=== PATIENT | female | born 1965 | race African-American/Black ===

== ENCOUNTER → 2021-09-04 14:51 | Outpatient (CLI) | payer BC, SELFPAY ==
--- NOTE | ~2021-09-04 | US_ITS ---
This report was recreated 09/05/2021. Original report was signed by Boo Olmos M.D. on 09/04/2021 20:43 CDT. US thyroid INDICATION: Thyroid nodule TECHNIQUE: Real-time sonographic images of the thyroid gland were obtained. COMPARISON: No prior studies for comparison. FINDINGS: The right thyroid lobe measures 4.6 x 2.4 x 2.1 cm. The left thyroid lobe measures 5.6 x 2.3 x 2 cm. There is normal echotexture and echogenicity throughout the thyroid gland. There are multiple right thyroid nodules, largest dominant mass being solid, isoechoic, taller than wide, ill-defined margins without echogenic foci measuring 1.2 x 0.8 x 1.0 cm (TR 4). In the left lobe there are multiple thyroid masses, largest dominant mass measuring 2 x 1.7 x 1.6 cm which is solid, slightly hypoechoic, wider than tall, ill-defined margins and no significant echogenic foci (TR 4). Normal vascular flow is present. IMPRESSION: 1. Dominant left thyroid mass meets sonographic criteria for biopsy. Ultrasound-guided fine-needle aspiration is recommended. 2: Right thyroid mass is moderately suspicious, although does not meet criteria for biopsy. Follow-up ultrasound in 12 months recommended. Reviewed, dictated and finalized at location A. Dictated By: Boo Olmos MD 09/04/212013 Signed By: 09/05/21 1149 TONYA
== END ==
PROVIDERS: PCP Family Medicine; Visit Provider Family Medicine
DX: E04.1 Nontoxic single thyroid nodule (principal)
CPT/HCPCS: 76536

== ENCOUNTER 2021-10-23 00:35 | Day surgery (SDC) | payer BC, SELFPAY ==
[2021-10-10 14:26] VITALS: BMI 31.0
--- NOTE | 2021-10-22 13:29 | WPDANESEPPF ---
Anes - Initial Pre Proc Eval Procedure: Operation Date: 10/23/21 10:30 Proposed Procedures p Screening Colonoscopy - Abraham Pena MD Date/Time: 10/22/21 13:29 Surgeon: Abraham Pena MD Pre Op Diagnosis: neoplasm screening Patient Data Age: 55 Gender: F Height: 1.63 m Weight: 82 kg Allergies Allergy/AdvReac Type Severity Reaction Status Date / Time No Known Allergies Allergy Verified 10/23/21 09:36 Home Medications Medication Instructions Recorded Confirmed Type metoprolol tartrate 50 1 tablet PO DAILY #30 tabs 08/30/21 10/23/21 Rx mg-hydrochlorothiazide 25 mg tablet sertraline 50 mg tablet 50 mg PO DAILY 08/30/21 10/23/21 History amlodipine 10 mg tablet (Norvasc) 10 mg PO DAILY #90 tabs 09/05/21 10/23/21 Rx clonidine HCl 0.1 mg tablet See Rx Instructions .Route 09/05/21 10/23/21 Rx .COMPLEX #270 tabs Patient hx anesthesia problems: none Family hx anesthesia problems: none Results Review: All pre-operative results and documents have been reviewed as part of the pre-operative evaluation. [facility], LAT[facility] Past Medical History Medical History (Updated 09/10/21 @ 12:41 by Ana Mccoy MD) Benign hypertension Depression Thyroid nodule Family History Family History (Updated 08/30/21 @ 14:39 by Marybeth Fischer) Mother Lung cancer Diabetes mellitus Hypertension Heart disease Sibling Asthma Diabetes mellitus Hypertension Thyroid disorder Social History Social History (Updated 08/30/21 @ 14:37 by Marybeth Fischer) Social History: Single Years smoked: 15 Smoking status: Current every day smoker Tobacco type: cigarettes Alcohol intake: current Drinks per week: 5 Substance use: never Substance use type: does not use Living arrangements: with family Additional living arrangements comments: Pt daughter lives with her. Gender identity (if verbalized by the patient): Female Sexual Orientation (if Verbalized by the Patient): Straight or Heterosexual Anes - Eval Final PreProcedure Day of Procedure 10/22/21 13:29 Patient weight: obese Heart: regular rate and rhythm Lungs: clear to auscultation Airway: Mallampati scale class II Neurological: alert and oriented Last oral intake: >/= 8 hours ASA classification: III Emergent: no Anesthetic plan: proceed Anesthesia type and monitoring: general GIVS and standard monitoring Results Review: All pre-operative results and documents have been reviewed as part of the pre-operative evaluation. Informed Consent: The patient's anesthetic plan and its attendant risks and benefits were discussed with the patient/family/POA. Questions were solicited and answers provided to the satisfaction of the patient/family/POA.
[2021-10-23 09:38] VITALS: BP 166/90; PULSE 84; RESP 17; TEMP 36.2; O2SAT 99; BMI 37.0
[2021-10-23] MEDS: LACTATED RINGERS 1,000 ML 150 ML IV CONT (09:48)
--- NOTE | 2021-10-23 09:49 | SUR.PREOP ---
Patient is post menopausal, no need for a urine test.
--- NOTE | 2021-10-23 09:58 | PM.HPGS ---
History of Present Illness History of Present Illness Consent: Risks, benefits, and alternatives have been discussed and questions answered. Patient agrees to proceed with procedure. Chief complaint: neoplasm screening Narrative: Doreen Bustos is a 55 year old female here for first screening colonoscopy Review of Systems Constitutional: Constitutional: Denies headache(s) and Denies weakness Eyes: Eyes: Denies blurry vision ENT: Reports Normal hearing present, Denies headache(s) and Denies neck pain Cardiovascular: Cardiovascular: Denies chest pain and Denies dyspnea Respiratory: Respiratory: Denies dyspnea Gastrointestinal: Gastrointestinal: Reports no additional gastrointestinal complaints Genitourinary: Genitourinary: Denies dysuria Musculoskeletal: Musculoskeletal: Denies neck pain Integumentary/Breasts: Skin/Breast: Denies dry skin Neurologic: Reports Normal hearing present, Denies headache(s) and Denies weakness Psychiatric: Psychiatric: Denies anxiety Endocrine: Endocrine: Denies change in body appearance Hematologic/Lymphatic: Hematologic/Lymphatic: Denies easy bleeding Allergic/Immunologic: Allergic/Immunologic: Denies urticaria PMFSH Past Medical History Medical History (Updated 09/10/21 @ 12:41 by Ana Mccoy MD) Benign hypertension Depression Thyroid nodule Family History Family History (Updated 08/30/21 @ 14:39 by Marybeth Fischer) Mother Lung cancer Diabetes mellitus Hypertension Heart disease Sibling Asthma Diabetes mellitus Hypertension Thyroid disorder Social History Social History (Updated 08/30/21 @ 14:37 by Marybeth Fischer) Social History: Single Years smoked: 15 Smoking status: Current every day smoker Tobacco type: cigarettes Alcohol intake: current Drinks per week: 5 Substance use: never Substance use type: does not use Living arrangements: with family Additional living arrangements comments: Pt daughter lives with her. Gender identity (if verbalized by the patient): Female Sexual Orientation (if Verbalized by the Patient): Straight or Heterosexual Meds Home Medications and Allergies Home Medications Medication Instructions Recorded Confirmed Type metoprolol tartrate 50 1 tablet PO DAILY #30 tabs 08/30/21 10/23/21 Rx mg-hydrochlorothiazide 25 mg tablet sertraline 50 mg tablet 50 mg PO DAILY 08/30/21 10/23/21 History amlodipine 10 mg tablet (Norvasc) 10 mg PO DAILY #90 tabs 09/05/21 10/23/21 Rx clonidine HCl 0.1 mg tablet See Rx Instructions .Route 09/05/21 10/23/21 Rx .COMPLEX #270 tabs Allergies Allergy/AdvReac Type Severity Reaction Status Date / Time No Known Allergies Allergy Verified 10/23/21 09:36 Vital Signs Vital Signs - 24 hr 10/23/21 09:38 Temperature 97.1 F L Pulse Rate 84 Respiratory Rate 17 Blood Pressure 166/90 H Pulse Oximetry 99 Oxygen Delivery Room Air Exam Const: General: comfortable and no acute distress HENMT: General nose exam: Normal nares present Eyes: General: appearance normal, both eyes and all related structures Neck: Neck: no JVD Resp: Auscultation: clear to auscultation bilaterally Cardio: Rate: regular rate Rhythm: regular rhythm GI: Inspection: non-distended GI Palp: Yes Soft to palpation Skin: General skin exam: normal color Neuro: General: gait normal Speech: normal speech Extrem: General: normal to inspection Psych: Mental Status: mental status grossly normal Assessment and Plan Assessment and plan (1) Colon cancer screening: Code(s): Z12.11 - Encounter for screening for malignant neoplasm of colon Status: Acute Assessment and Plan: colonoscopy
[2021-10-23 10:13] VITALS: BP 120/73; PULSE 81; RESP 28; O2SAT 93
[2021-10-23 10:23] VITALS: BP 147/85; PULSE 86; RESP 21; O2SAT 98
[2021-10-23 10:33] VITALS: BP 137/86; PULSE 72; RESP 21; O2SAT 99
== END 2021-10-23 10:44 | disposition home or self-care (01) ==
PROVIDERS: PCP Family Medicine; Visit Provider Internal Medicine Gastroenterology
PROC: 0DJD8ZZ Inspection of Lower Intestinal Tract, Via Natural or Artificial Opening Endoscopic (ICD-10-PCS; CPT 45378; principal; 2021-10-23 10:30)
DX: Z12.11 Encounter for screening for malignant neoplasm of colon (principal); K64.8 Other hemorrhoids; I10 Essential (primary) hypertension; F32.A Depression, unspecified; E04.1 Nontoxic single thyroid nodule; F17.210 Nicotine dependence, cigarettes, uncomplicated; E66.9 Obesity, unspecified; Z68.37 Body mass index [BMI] 37.0-37.9, adult
CPT/HCPCS: 45378; J2704; J7120

== ENCOUNTER 2021-11-07 12:57 | Outpatient (CLI) | payer BC, SELFPAY ==
--- NOTE | ~2021-11-07 | US_ITS ---
EXAMINATION: US FNA w image guidance DATE: 11/07/2021 14:33 INDICATION: Nontoxic multinodular goiter TECHNIQUE: A time-out was performed to verify the patient's name, date of , and procedure to be performed . The procedure and its benefits and risks were discussed with the patient. Risks specifically discus sed included bleeding and infection. The patient understood the risks and agreed to proceed. The neck was prepped and draped in the usual sterile manner. 4 mL 1% lidocaine was used for local anesthesia . 6 passes were made with a 25G needle into the lesion. Appropriate needle location was documented with continuous sonographic guidance. A sterile bandage was applied. There were no immediate compli cations. FINDINGS: Grayscale ultrasound images demonstrate biopsy needles advanced into the 2 cm solid isoechoic TI RADS 4 nodule at the inferior left thyroid. IMPRESSION: 1. Successful ultrasound-guided fine needle aspiration of the 2 cm TI RADS 4 left thyroid nodule of concern. Reviewed, dictated and finalized at location A. IMPRESSION: 1. Successful ultrasound-guided fine needle aspiration of the 2 cm TI RADS 4 l eft thyroid nodule of concern.
== END 2021-11-07 12:58 | disposition home or self-care (01) ==
LOC: ANHIMG 12:59
PROVIDERS: PCP Family Medicine; Visit Provider Family Medicine
DX: E04.2 Nontoxic multinodular goiter (principal); E04.1 Nontoxic single thyroid nodule
CPT/HCPCS: 10005; 88173; 88305

== ENCOUNTER 2022-04-01 17:11 | Observation (INO) | payer BC, SELFPAY ==
[2022-04-01] VITALS (14 sets, daily range): BP systolic 141–217; BP diastolic 91–110; PULSE 88–113; RESP 20; TEMP 36.6–36.7; O2SAT 96–100; BMI 34.6
--- NOTE | ~2022-04-01 | CT_ITS ---
EXAMINATION: CT abdomen pelvis w con DATE: 04/01/2022 19:05 INDICATION: Abdominal pain TECHNIQUE: Computed tomography (CT) of the abdomen and pelvis was performed with 100 mL Omnipaque-350 intravenous contrast. Automated exposure control and iterative reconstruction technique were employe d. The dose-length product was 709.10 mGy-cm. COMPARISON: None FINDINGS: Mild discoid atelectasis in the lingula and right middle lobe. Heart size is normal. No pericardial o r pleural effusion. Small sliding-type hiatal hernia. Liver, gallbladder, spleen, pancreas and right adrenal gland are normal. 2.9 x 2.0 cm left adrenal mass. Bilateral renal cysts the larger on the lef t measuring 3.4 cm. Bilateral nonobstructing small renal stones measuring 2 mm at the upper pole of t he right kidney and 4 mm in upper pole calyx of the left kidney. No hydronephrosis. There are few sca ttered colonic diverticula without adjacent inflammatory stranding to suggest diverticulitis. Small b owel and appendix are normal. Bladder, anteverted uterus and bilateral adnexa are unremarkable. There are several phleboliths along the bilateral gonadal veins. No free intraperitoneal gas or fluid. No pathologically enlarged abdominal or pelvic lymphadenopathy. Mild thoracolumbar levocurvature with mo derate spondylosis. IMPRESSION: 1. Normal gallbladder and appendix. No acute intra-abdominal/pelvic process. 2. Bilateral nonobstructing nephrolithiasis. 3. 2.9 cm left adrenal mass. While statistically most likely to represent an adenoma, given size woul d recommend further evaluation with pre and postcontrast MRI or CT. 4. Small sliding-type hiatal hernia. Reviewed, dictated and finalized at location A. STORAGE SUPERINTENDENT IMPRESSION: 1. Normal gallbladder and appendix. No acute intra-abdominal/pelvic process. 2. Bilateral nonobstructing nephrolithiasis. 3. 2.9 cm left adrenal mass. While statistically most likely to represent an ad enoma, given size would recommend further evaluation with pre and postcontrast MRI or CT. 4. Small sliding-type hiatal hernia.
--- NOTE | ~2022-04-01 | US_ITS ---
Limited Abdominal Sonogram: Real-time sonographic imaging of the right upper quadrant was performed. Clinical History: Nausea and vomiting Findings: The liver appears normal with no evidence of mass lesion or bile duct dilatation. Main por mario vein demonstrates normal direction of flow. The gallbladder is well distended, and appears normal with no evidence of gallstone or wall thickening. The common bile duct measures 3 mm. The visualize d pancreas, aorta, and IVC are unremarkable. Impression: No significant abnormality seen. Reviewed, dictated and finalized at location M. LESS TELEGRAPHER Impression: No significant abnormality seen.
--- NOTE | ~2022-04-01 | CT_ITS ---
EXAMINATION: CT abdomen wo/w con INDICATION: Adrenal mass TECHNIQUE: Computed tomographic images of the abdomen were obtained prior to then following the admin istration of 100 cc of Omnipaque 350 intravenous contrast. The dose-length product (DLP) was 1461.23 mGy-cm. Automated exposure control and iterative reconstruction technique were employed. COMPARISON: 04/01/2022 FINDINGS: Minimal dependent atelectasis is present in the lung bases. The heart size is normal. There is a small sliding hiatal hernia. The liver, spleen, pancreas, gallbladder, and right adrenal gland are normal there is a 2.9 cm mass of the left adrenal gland which demonstrates 80% absolute washout a nd 62% relative washout. Cysts of the kidneys measure up to 3.3 cm on the left. There are 2 mm nonobs tructing stones of the kidneys. No pathologically enlarged abdominal lymph nodes are identified. No f ree intraperitoneal gas or evidence of bowel obstruction. There is calcified atherosclerosis of the a [place] and many of the other arteries. IMPRESSION: 1. Left adrenal mass, consistent with an adenoma. Reviewed, dictated and finalized at location B. NG FINISHER
[2022-04-01 17:43] LABS: Basophils Percent Auto 0.2 % (0.2-1.2); Hematocrit 45.5 % (37.0-47.0); Hemoglobin 15.2 g/dL (12.0-15.0); Immature Granulocyte Absolute 0.05 K/mm3 (0.00-0.031); Immature Granulocyte Percent A 0.4 % (0-0.5); Lymphocytes Absolute Auto 2.03 K/mm3 (0.9-3.2); Lymphocytes Percent Auto 14.4 % (18.3-44.2); Mean Corpuscular HGB Conc 33.4 g/dl (32-36); Mean Corpuscular Volume 83.8 fl (80-100); Mean Platelet Volume 10.9 fl (7.4-10.4); Monocytes Absolute Auto 0.6 K/mm3 (0.1-0.6); Monocytes Percent Auto 4.5 % (2.6-8.5); Neutrophils Absolute Auto 11.4 K/mm3 (1.3-6.7); Neutrophils Percent Auto 80.5 % (45.5-73.1); Platelet Count Result 290 k/mm3 (150-375); Red Blood Count 5.43 M/mm3 (4.2-5.4); Red Cell Distribution Width 14.6 % (11.5-14.5); White Blood Count 14.1 K/mm3 (4.5-10.0)
[2022-04-01 17:56] LABS: Alanine Aminotransferase 27 U/L (6-35); Albumin Level 5.3 g/dL (3.5-5.1); Alkaline Phosphatase 94 U/L (38-126); Anion Gap 13 mmol/L (8-16); Aspartate Amino Transferase 28 U/L (14-36); Bilirubin,Total 0.6 mg/dL (0.2-1.3); Blood Urea Nitrogen 18 mg/dL (7-17); Calcium 10.5 mg/dL (8.4-10.2); Carbon Dioxide 24 mmol/L (22-30); Chloride 102 mmol/L (98-107); Estimated CRCL calculation 71 ml/min; Estimated Glomerular Filt Rate > 60; Glucose 185 mg/dL (65-110); Lipase 49 U/L (23-300); Potassium 2.8 mmol/L (3.4-5.0); Sodium 139 mmol/L (137-145)
--- NOTE | 2022-04-01 18:16 | ED.GENADULT ---
HPI - General Adult General Chief complaint: Nausea/Vomiting/Diarrhea Stated complaint: nausea, vomiting, can't keep bp meds down Time Seen by Provider: 04/01/22 18:12 Source: RN notes reviewed History of Present Illness HPI narrative: Patient presents to emergency department from home for nausea and vomiting. Patient states that she has been having profuse nausea and vomiting since last night. States she had eaten some chicken yesterday and felt like that was the likely culprit of her nausea vomiting states that since that time she is unable to keep anything down she states that she has been having upper abdominal pain associate with vomiting she denies any fevers or chills chest pain shortness of breath diarrhea or any other symptoms. States she has a history of hypertension and has been unable to take any of her medication Related Data Allergies Allergy/AdvReac Type Severity Reaction Status Date / Time No Known Allergies Allergy Verified 04/01/22 18:26 Review of Systems Review of Systems: Gen.: Denies fevers or chills ENT: Denies congestion Respiratory: Denies shortness of breath or cough CV: Denies chest pain or palpitations GI: See HPI Musculoskeletal: Denies back pain or muscle pain Neuro: Denies numbness, tingling, weakness or focal weakness Skin: Denies rash Except as documented, all other systems reviewed and negative [facility] Past Medical History Medical History Benign hypertension Depression Thyroid nodule Family History Family History Mother Lung cancer Diabetes mellitus Hypertension Heart disease Sibling Asthma Diabetes mellitus Hypertension Thyroid disorder Social History Social History Social History: Single Smoking packs per day: 0.5 Smoking cigarettes per day: 10.0 Years smoked: 15 Smoking pack-years: 7.50 Smoking status: Current every day smoker Tobacco type: cigarettes Alcohol intake: current Alcohol use details: Occasionally Substance use: never Substance use type: does not use Living arrangements: with family Additional living arrangements comments: Pt daughter lives with her. Occupation/Education: occupation Gender identity (if verbalized by the patient): Female Sexual Orientation (if Verbalized by the Patient): Straight or Heterosexual Exam Narrative: APPEARANCE: No acute distress, nontoxic, resting in bed EYES: EOMI HEENT: Normocephalic, atraumatic, OMM RESPIRATORY: No respiratory distress Clear to auscultation bilaterally with no rhonchi wheezing or rales. CARDIOVASCULAR: Regular rate and rhythm without murmurs rubs or gallops. ABDOMINAL: Soft, nondistended, tender palpation epigastric, right upper quadrant and left upper quadrant no tenderness in the right lower quadrant left lower quadrant no rebound or guarding MUSCULOSKELETAl: Moves all extremities. No clubbing, cyanosis or edema. NEURO: Awake and alert. Following commands, speech normal, no focal deficits SKIN:: Warm, dry. No rashes lesions or abrasions PSYCHIATRIC: Normal affect/mood, Course Course Emergency Course: Discussed with Dr. Badillo for hospitalist service agrees with admission discussed adrenal mass and need for further imaging once nausea and vomiting improved Discussed with patient and family results of workup and diagnosis. Discussed need for admission. Patient and family understand and agree to current treatment plan Vital Signs Vital signs: Vital Signs Temperature 98.1 F 04/01/22 17:21 Pulse Rate 111 H 04/01/22 17:21 Respiratory Rate 20 04/01/22 17:21 Blood Pressure 183/91 H 04/01/22 17:21 Pulse Oximetry 100 04/01/22 17:21 Temperature 98.1 F 04/01/22 17:21 Pulse Rate 111 H 04/01/22 17:21 Respiratory Rate 20 04/01/22 17:21 Blood Pressure 183/91 H 04/01/22 17:21 Pulse Oximetry
[2022-04-01 18:30] LABS: Magnesium 2.1 mg/dL (1.6-2.3)
[2022-04-01] MEDS: SODIUM CHLORIDE 0.9% IV 1,000 ML 999 ML IV CONT (18:41)
[2022-04-01] MEDS: ONDANSETRON INJ 4 MG/2 ML VIAL IV PUSH (18:45)
[2022-04-01] MEDS: FAMOTIDINE 20 MG/2 ML VIAL IV PUSH (18:45)
[2022-04-01] MEDS: POTASSIUM CHLORIDE INJ 40 MEQ in SODIUM CHLORIDE 0.9% IV 500 ML 130 MEQ IVPB (19:10)
--- NOTE | 2022-04-01 19:10 | ECG_ITS ---
Measurements Intervals Velma Rate: 84 P: 69 UT: 135 QRS: 9 QRSD: 89 T: 177 QT: 381 QTc: 450 Interpretive Statements SINUS RHYTHM WITH MARKED SINUS ARRHYTHMIA RIGHT ATRIAL ENLARGEMENT [0.3mV P-WAVE] LEFT ATRIAL ENLARGEMENT [-0.15mV P-WAVE IN V1/V2] LEFT VENTRICULAR HYPERTROPHY AND ST-T CHANGE [VOLTAGE CRITERIA PLUS ST/T ABNORMALITY] NO PREVIOUS ECG AVAILABLE FOR COMPARISON Electronically Signed On 04-02-2022 14:48:45 MENSWEAR SALESPERSON by Virgilio Madrid M.D.
[2022-04-01 19:15] LABS: Influenza A QL RT-PCR Negative (Negative); Influenza B QL RT-PCR Negative (Negative); RSV RNA, RT-PCR Negative (Negative); SARS-CoV-2 RNA PCR Negative
[2022-04-01 19:36] LABS: Appearance Urine Slightly Cloudy (Clear); Bilirubin Urine Negative (Negative); Blood Urine Trace-lysed (Negative); Color Urine Yellow (Yellow); Glucose Urine UA Negative (Negative); Ketones Urine Negative (Negative); Leukocyte Esterase Ur Negative LEU/UL (Negative); Nitrate Urine Negative (Negative); Protein Urine 2+ mg/dL (Negative); Urobilinogen Urine 0.2 mg/dL (<2.0)
[2022-04-01 19:38] LABS: Bacteria Urine Trace /hpf; Mucus Urine Rare /lpf; RBC Urine 0-2 /hpf (0-2); Squamous Epithelial Cell Urine Occasional /hpf (Few); WBC Urine 0-3 /hpf
[2022-04-01 19:39] LABS: Add Urine Microscopic? YES
--- NOTE | 2022-04-01 19:59 | PM.IMHP ---
H&P: HPI History of Present Illness Date/Time: 04/01/22 19:59 Chief Complaint: Nausea and vomiting Narrative: This is a 56-year-old female with past medical history significant for hypertension. Patient presents to the emergency room after having several episodes of nausea and vomiting she attributes this to having fat rich food the night before, patient has not been able to keep anything down, has not been able to take her medications for her hypertension. Decided to come to the emergency room denies any cough, sputum production, fevers, rigors, no muscle aches or pains. Preliminary [place] [address], a potassium of 2.8, patient tested negative for influenza A, influenza B, RSV and COVID 19. She was noted to have a systolic blood pressure in the 100 and 80s to 100 and 90s and diastolic in the 90s to 100s, patient received hydralazine in the emergency room. Decision has been made to place the patient in observation for further evaluation management and treatment. A CT of abdomen and pelvis was reported as: FINDINGS: Mild discoid atelectasis in the lingula and right middle lobe. Heart size is normal. No pericardial or pleural effusion. Small sliding-type hiatal hernia. Liver, gallbladder, spleen, pancreas and right adrenal gland are normal. 2.9 x 2.0 cm left adrenal mass. Bilateral renal cysts the larger on the left measuring 3.4 cm. Bilateral nonobstructing small renal stones measuring 2 mm at the upper pole of the right kidney and 4 mm in upper pole calyx of the left kidney. No hydronephrosis. There are few scattered colonic diverticula without adjacent inflammatory stranding to suggest diverticulitis. Small bowel and appendix are normal. Bladder, anteverted uterus and bilateral adnexa are unremarkable. There are several phleboliths along the bilateral gonadal veins. No free intraperitoneal gas or fluid. No pathologically enlarged abdominal or pelvic lymphadenopathy. Mild thoracolumbar levocurvature with moderate spondylosis. IMPRESSION: 1. Normal gallbladder and appendix. No acute intra-abdominal/pelvic process. 2. Bilateral nonobstructing nephrolithiasis. 3. 2.9 cm left adrenal mass. While statistically most likely to represent an adenoma, given size would recommend further evaluation with pre and postcontrast MRI or CT. 4. Small sliding-type hiatal hernia. Review of Systems Review of Systems: Nausea, vomiting. Constitutional: Constitutional: Denies chills, Denies fever(s), Denies malaise, Denies night sweats and Denies weakness Eyes: Eyes: Denies change in vision ENT: Denies dysphagia and Denies odynophagia Cardiovascular: Cardiovascular: Denies chest pain, Denies leg edema, Denies lightheadedness, Denies radiating jaw, neck or arm pain, Denies palpitations and Denies dyspnea on exertion Respiratory: Respiratory: Denies chest congestion, Denies cough, Denies excessive phlegm production, Denies pain on inspiration, Denies dyspnea and Denies wheezing Gastrointestinal: Gastrointestinal: Denies abdominal pain, Denies dyspepsia, Denies heartburn, Reports nausea and Reports vomiting Genitourinary: Genitourinary: Denies dysuria Musculoskeletal: Musculoskeletal: Denies back pain and Denies myalgias Integumentary/Breasts: Skin/Breast: Denies rash Neurologic: Denies vertigo, Denies dizziness, Denies syncope, Denies focal weakness and Denies Sensory deficit (Neuro) Psychiatric: Psychiatric: Reports no additional psychiatric complaints and Reports as per HPI Endocrine: Endocrine: Denies cold intolerance, Denies flushing, Denies heat intolerance, Denies polyphagia, Denies polydipsia and Denies palpitations Hematologic/Lymphatic: Hematologic/Lymphatic: Reports no additional hematologic/lymphatic complaints and Reports as per HPI Allergic/Immunologic: Allergic/Immunologic: Reports no additional allergic/immunologic complaints and Reports as per HPI [facility] Past Medical History Medical History (Reviewed 04/01/22
[2022-04-01] MEDS: hydrALAZINE HCL 20 MG/ML VIAL 10 MG IV PUSH (20:23)
[2022-04-01] MEDS: SODIUM CHLORIDE 0.9% IV 1,000 ML 125 ML IV CONT (20:23)
--- NOTE | 2022-04-01 21:47 | PC.NURSE ---
Patient care report called to CASSIUS Iqbal. All question answered at this time.
--- NOTE | 2022-04-01 22:14 | ADMGEN ---
This patient, Doreen Bustos, was admitted to IMU Room 212-01 at 2200 04/01/2022. Patient/family oriented to hospital policies and general routines including ID bracelet, bed and alarms, visiting hours, pain management, procedures, bathroom and other care routines, personal items, smoking policy, room service/diet, and visiting hours. Information on how to activate the Rapid Response Team has been discussed. Patient/Family are encouraged to report perceived risks to care and to ask questions if they do not understand what they are told or what they should do.
[2022-04-02] VITALS (17 sets, daily range): BP systolic 154–195; BP diastolic 81–108; PULSE 66–113; RESP 20; TEMP 35.8–37; O2SAT 99–100
[2022-04-02] MEDS: BELLADONNA ALK/PHENOB ELIX 10 ML, MAG HYDROX/ALUMINUM HYD/SIMETH 30 ML, LIDOCAINE HCL 2... PO (03:48)
[2022-04-02] MEDS: hydrALAZINE HCL 20 MG/ML VIAL 10 MG IV PUSH ×2 (03:49→16:35)
[2022-04-02 05:16] LABS: Basophils Percent Auto 0.2 % (0.2-1.2); Hematocrit 42.6 % (37.0-47.0); Immature Granulocyte Absolute 0.08 K/mm3 (0.00-0.031); Immature Granulocyte Percent A 0.6 % (0-0.5); Lymphocytes Absolute Auto 2.03 K/mm3 (0.9-3.2); Lymphocytes Percent Auto 14.8 % (18.3-44.2); Mean Corpuscular HGB Conc 32.9 g/dl (32-36); Mean Corpuscular Hemoglobin 28.3 pg (26-34); Mean Corpuscular Volume 86.1 fl (80-100); Mean Platelet Volume 10.8 fl (7.4-10.4); Monocytes Absolute Auto 0.9 K/mm3 (0.1-0.6); Monocytes Percent Auto 6.6 % (2.6-8.5); Neutrophils Absolute Auto 10.6 K/mm3 (1.3-6.7); Neutrophils Percent Auto 77.8 % (45.5-73.1); Platelet Count Result 255 k/mm3 (150-375); Red Blood Count 4.95 M/mm3 (4.2-5.4); Red Cell Distribution Width 14.7 % (11.5-14.5); White Blood Count 13.7 K/mm3 (4.5-10.0)
[2022-04-02 05:26] LABS: Alanine Aminotransferase 24 U/L (6-35); Albumin Level 4.5 g/dL (3.5-5.1); Alkaline Phosphatase 77 U/L (38-126); Anion Gap 7 mmol/L (8-16); Aspartate Amino Transferase 24 U/L (14-36); Bilirubin,Total 0.5 mg/dL (0.2-1.3); Blood Urea Nitrogen 14 mg/dL (7-17); Calcium 9.1 mg/dL (8.4-10.2); Carbon Dioxide 25 mmol/L (22-30); Chloride 105 mmol/L (98-107); Estimated CRCL calculation 98 ml/min; Estimated Glomerular Filt Rate > 60; Glucose 142 mg/dL (65-110); Potassium 3.3 mmol/L (3.4-5.0); Sodium 137 mmol/L (137-145)
[2022-04-02] MEDS: cloNIDine HCL 0.1 MG TABLET PO ×3 (05:56→20:45)
[2022-04-02] MEDS: SODIUM CHLORIDE 0.9% IV 1,000 ML 125 ML IV CONT ×2 (07:58→16:06)
[2022-04-02] MEDS: SUCRALFATE SUSP 100 MG/ML 10 ML UDC 1000 MG PO ×4 (08:06→20:45)
[2022-04-02] MEDS: PANTOPRAZOLE SODIUM IV 40 MG VIAL IV PUSH ×2 (08:07→20:44)
[2022-04-02] MEDS: SERTRALINE HCL 50 MG TABLET PO (08:07)
[2022-04-02] MEDS: FAMOTIDINE 20 MG/2 ML VIAL IV PUSH ×2 (08:07→20:45)
[2022-04-02] MEDS: METOPROLOL TARTRATE 50 MG TAB PO (08:07)
[2022-04-02] MEDS: amLODIPine BESYLATE 5 MG TABLET 10 MG PO (08:07)
[2022-04-02] MEDS: hydroCHLOROthiazide 25 MG TABLET PO (08:07)
[2022-04-02] MEDS: ENOXAPARIN 40 MG/0.4 ML SYRINGE SUB-Q (08:08)
[2022-04-02] MEDS: POTASSIUM CHLORIDE 20 MEQ PACKET (FOR LIQUID) 40 MEQ PO (10:27)
[2022-04-02] MEDS: ONDANSETRON INJ 4 MG/2 ML VIAL IV PUSH (17:13)
--- NOTE | 2022-04-02 18:32 | PM.IMPN ---
Progress Note: A&P Assessment and Plan (1) Nausea and vomiting: Code(s): R11.2 - Nausea with vomiting, unspecified Status: Acute Assessment and Plan: Patient presents with nausea and vomiting. She has a history of nausea and vomiting and suspect possibly she has cyclic vomiting. This could also be related to her marijuana use. This was discussed with her. LFTs and lipase were normal. CT of the abdomen pelvis showed normal gallbladder and appendix. No acute intra-abdominal or pelvic process. Right upper quadrant ultrasound showed no significant abnormalities. She was started IV fluids. She feels better. Stop by 3 or 4 times during the day. Patient is worried about being discharged. She still has some nausea and occasional vomiting but overall feels better. She ultimately decides to stay. Continue Zofran p.r.n. for nausea. Will check urine drug screen. (2) Acute hypokalemia: Code(s): E87.6 - Hypokalemia Status: Acute Assessment and Plan: Patient admission with potassium 2.8. Repeat potassium 3.3. This was replaced orally. Magnesium was 2.1 on admission. Check potassium in the morning. Probably related to her nausea and vomiting but she is on hydrochlorothiazide which could contribute to this. Continue to replace as needed. Will check TSH and cortisol level. (3) Tobacco abuse: Code(s): Z72.0 - Tobacco use Status: Acute Assessment and Plan: Patient was educated about the benefits of smoking cessation as well as refraining from marijuana use. (4) Hypertension: Code(s): I10 - Essential (primary) hypertension Status: Acute Assessment and Plan: Blood pressure markedly elevated to 217/104. [place] related to the fact that she has been having nausea and vomiting and unable to keep her home medications down. She has been resumed on her amlodipine, clonidine, metoprolol and hydrochlorothiazide. Blood pressure is better controlled. Will monitor for now but may need to advance her medications if blood pressure remains elevated. (5) Adrenal mass: Code(s): E27.8 - Other specified disorders of adrenal gland Status: Acute Assessment and Plan: Incidental finding of a 2.9 cm left adrenal mass. Most likely adenoma but CT w/o and w/ recommended. Will proceed with the biochemical workup including Dexa suppression tonight. Check CT since remaining hospitalized. Subjective Date/time seen: 04/02/22 18:32 Interval history: 56-year-old female with hypertension tobacco abuse here for nausea vomiting found to have hypokalemia. Patient has history these episodes of nausea and vomiting that she states ?I can not control?. She has not had a GI workup for this. She feels tired today. She has been told may be diet related. She does smoke marijuana on occasion. Exam Narrative: AF 96.4 176/81 79 20 99%ra Gen - NARD Chest - CTA bilaterally, nml RR CV - RRR S1/S2. Telemetry showing no significant dysrhythmias Abd - Soft, NT/ND, Positive BS Ext - No pedal edema Neuro - Alert and oriented. Nonfocal exam. Psych - Nml mood and affect Skin - Warm and dry Objective Data Vital Signs Vital Signs: Vital Signs - 24 hr 04/01/22 20:58 04/01/22 21:00 04/01/22 21:02 Temperature Pulse Rate 98 98 97 Respiratory Rate Blood Pressure 194/101 H Pulse Oximetry 100 100 100 Oxygen Delivery 04/01/22 21:03 04/01/22 21:15 04/01/22 21:16 Temperature Pulse Rate 88 91 93 Respiratory Rate Blood Pressure 202/93 H Pulse Oximetry 99 100 96 Oxygen Delivery 04/01/22 21:30 04/01/22 21:32 04/01/22 21:45 Temperature Pulse Rate 90 98 99 Respiratory Rate Blood Pressure 217/104 H Pulse Oximetry 100 100 99 Oxygen Delivery 04/01/22 21:46 04/01/22 22:05 04/01/22 22:00 Temperature Pulse Rate 107 H 104 H Respiratory Rate Blood Pressure 215/105 H Pulse Oximetry 97 97 Oxygen Delivery Room Air
[2022-04-03] MEDS: SODIUM CHLORIDE 0.9% IV 1,000 ML 125 ML IV CONT (00:45)
[2022-04-03 04:10] VITALS: BP 128/73; RESP 20; TEMP 36.6; O2SAT 100
[2022-04-03] MEDS: cloNIDine HCL 0.1 MG TABLET PO (06:11)
[2022-04-03] MEDS: SUCRALFATE SUSP 100 MG/ML 10 ML UDC 1000 MG PO (06:11)
--- NOTE | 2022-04-03 07:35 | PC.NURSE ---
Pt to CT via wheelchair. IV fluids paused for testing.
[2022-04-03 08:00] VITALS: BP 132/76; PULSE 57; RESP 16; TEMP 36.4; O2SAT 97
--- NOTE | 2022-04-03 08:29 | PC.NURSE ---
Addendum entered by Ayesha Calhoun RN 04/03/22 08:30: This occurred at 0815 Original Note: Pt returned from CT. IV fluids resumed
--- NOTE | 2022-04-03 08:31 | PM.DS ---
DS: Admitting Diagnosis Discharge Date 04/03/2022 Admitting Diagnosis Cyclic vomiting syndrome DS: Discharge Diagnosis Discharge Diagnosis (1) Nausea and vomiting: Code(s): R11.2 - Nausea with vomiting, unspecified Status: Acute Assessment and Plan: Patient presents with nausea and vomiting. She has a history of nausea and vomiting and suspect possibly she has cyclic vomiting. This could also be related to her marijuana use. This was discussed with her. LFTs and lipase were normal. CT of the abdomen pelvis showed normal gallbladder and appendix. No acute intra-abdominal or pelvic process. Right upper quadrant ultrasound showed no significant abnormalities. She was started IV fluids. She feels better. Stop by 3 or 4 times during the day. Patient is worried about being discharged. She still has some nausea and occasional vomiting but overall feels better. She ultimately decides to stay. Continue Zofran p.r.n. for nausea. Will check urine drug screen. (2) Acute hypokalemia: Code(s): E87.6 - Hypokalemia Status: Acute Assessment and Plan: Patient admission with potassium 2.8. Repeat potassium 3.3. This was replaced orally. Magnesium was 2.1 on admission. Check potassium in the morning. Probably related to her nausea and vomiting but she is on hydrochlorothiazide which could contribute to this. Continue to replace as needed. Will check TSH and cortisol level. (3) Tobacco abuse: Code(s): Z72.0 - Tobacco use Status: Acute Assessment and Plan: Patient was educated about the benefits of smoking cessation as well as refraining from marijuana use. (4) Hypertension: Code(s): I10 - Essential (primary) hypertension Status: Acute Assessment and Plan: Blood pressure markedly elevated to 217/104. [place] related to the fact that she has been having nausea and vomiting and unable to keep her home medications down. She has been resumed on her amlodipine, clonidine, metoprolol and hydrochlorothiazide. Blood pressure is better controlled. Will monitor for now but may need to advance her medications if blood pressure remains elevated. (5) Adrenal mass: Code(s): E27.8 - Other specified disorders of adrenal gland Status: Acute Assessment and Plan: Incidental finding of a 2.9 cm left adrenal mass. Most likely adenoma but CT w/o and w/ recommended. Will proceed with the biochemical workup including Dexa suppression tonight. Check CT since remaining hospitalized. DS: Summary Hospital Course Hospital Course: 56-year-old female with past medical history significant for hypertension.? Patient presents to the emergency room after having several episodes of nausea and vomiting she attributes this to having fat rich food the night before, patient has not been able to keep anything down, has not been able to take her medications for her hypertension.? Decided to come to the emergency room denies any cough, sputum production, fevers, rigors, no muscle aches or pains.? Preliminary [place] [address], a potassium of 2.8, patient tested negative for influenza A, influenza B, RSV and COVID 19.? She was noted to have a systolic blood pressure in the 100 and 80s to 100 and 90s and diastolic in the 90s to 100s, patient received hydralazine in the emergency room.? Decision has been made to place the patient in observation for further evaluation management and treatment. Patient presents with nausea and vomiting.? She has a history of nausea and vomiting and suspect possibly she has cyclic vomiting.? This could also be related to her marijuana use.? This was discussed with her.? LFTs and lipase were normal.? CT of the abdomen pelvis showed normal gallbladder and appendix.? No acute intra-abdominal or pelvic process.? Right upper quadrant ultrasound showed no significant abnormalities.? She was started IV fluids.? She feels better.? Stop
[2022-04-03] MEDS: POTASSIUM CHLORIDE 20 MEQ TABLET 40 MEQ PO (08:54)
[2022-04-03 08:55] VITALS: PULSE 57
[2022-04-03] MEDS: METOPROLOL TARTRATE 50 MG TAB PO (08:55)
[2022-04-03] MEDS: hydroCHLOROthiazide 25 MG TABLET PO (08:55)
[2022-04-03] MEDS: amLODIPine BESYLATE 5 MG TABLET 10 MG PO (08:55)
[2022-04-03] MEDS: SERTRALINE HCL 50 MG TABLET PO (08:55)
[2022-04-03] MEDS: PANTOPRAZOLE SODIUM IV 40 MG VIAL IV PUSH (08:55)
[2022-04-03] MEDS: ENOXAPARIN 40 MG/0.4 ML SYRINGE SUB-Q (08:55)
[2022-04-03] MEDS: FAMOTIDINE 20 MG/2 ML VIAL IV PUSH (08:55)
[2022-04-03 09:17] LABS: Anion Gap 5 mmol/L (8-16); Blood Urea Nitrogen 20 mg/dL (7-17); Calcium 8.8 mg/dL (8.4-10.2); Carbon Dioxide 27 mmol/L (22-30); Chloride 104 mmol/L (98-107); Estimated CRCL calculation 56 ml/min; Estimated Glomerular Filt Rate > 60; Glucose 146 mg/dL (65-110); Magnesium 2.1 mg/dL (1.6-2.3); Potassium 3.3 mmol/L (3.4-5.0); Sodium 136 mmol/L (137-145)
[2022-04-06 12:58] LABS: DHEA-Sulfate 238 mcg/dL (8-188)
== END 2022-04-03 14:30 | disposition home or self-care (01) ==
LOC: ANHED 20:25 → ANHIMU 22:47
PROVIDERS: Internal Medicine; Admitting Provider Internal Medicine; Emergency Provider Emergency Medicine; PCP Family Medicine; Visit Provider Student in an Organized Health Care Education/Training Program
DX: R11.2 Nausea with vomiting, unspecified (principal); E87.6 Hypokalemia; F17.210 Nicotine dependence, cigarettes, uncomplicated; I11.9 Hypertensive heart disease without heart failure; E27.8 Other specified disorders of adrenal gland; F32.A Depression, unspecified; E04.1 Nontoxic single thyroid nodule; Z20.822 Contact with and (suspected) exposure to COVID-19; N20.0 Calculus of kidney; N28.1 Cyst of kidney, acquired; K44.9 Diaphragmatic hernia without obstruction or gangrene; D72.829 Elevated white blood cell count, unspecified; J98.11 Atelectasis; F12.90 Cannabis use, unspecified, uncomplicated; F10.90 Alcohol use, unspecified, uncomplicated; Z82.49 Family history of ischemic heart disease and other diseases of the circulatory system; Z84.89 Family history of other specified conditions
CPT/HCPCS: 36415; 74170; 74177; 76705; 80048; 80053; 81001; 82088; 82533; 82627; 83690; 83735; 83835; 84244; 84443; 85025; 87637; 93005; 96361; 96365; 96366; 96372; 96375; 96376; 99285; A9270; C9113; G0378; J0360; J1650; J2405; J3480; J7030; J7040; Q9967

== ENCOUNTER 2022-12-02 16:22 | Outpatient (CLI) | payer BC, SELFPAY ==
--- NOTE | ~2022-12-02 | XR_ITS ---
EXAMINATION: XR chest 2V 12/02/2022 16:41 INDICATION: Dyspnea. Hypertension. PROCEDURE: 2 view chest COMPARISON: No prior studies for comparison. FINDINGS: The lungs are clear. The cardiomediastinal silhouette is within normal limits. There are no pleural effusions. There is no pneumothorax suspected. IMPRESSION: 1: NO ACUTE CARDIOPULMONARY DISEASE. Reviewed, dictated and finalized at location B.
== END 2022-12-02 16:23 | disposition home or self-care (01) ==
PROVIDERS: PCP Family Medicine; Visit Provider Physician Assistant
DX: R06.00 Dyspnea, unspecified (principal)
CPT/HCPCS: 71046

== ENCOUNTER 2022-12-13 08:53 | Outpatient (CLI) | payer BC, SELFPAY ==
[2022-12-13 09:31] LABS: Basophils Absolute Auto 0.1 K/mm3 (0.0-0.1); Basophils Percent Auto 0.7 % (0.2-1.2); Eosinophils Absolute Auto 0.2 K/mm3 (0-0.3); Eosinophils Percent Auto 2.7 % (0-4.4); Hematocrit 40.7 % (37.0-47.0); Hemoglobin 12.7 g/dL (12.0-15.0); Immature Granulocyte Absolute 0.03 K/mm3 (0.00-0.031); Immature Granulocyte Percent A 0.4 % (0-0.5); Lymphocytes Absolute Auto 2.23 K/mm3 (0.9-3.2); Lymphocytes Percent Auto 30.4 % (18.3-44.2); Mean Corpuscular HGB Conc 31.2 g/dl (32-36); Mean Corpuscular Hemoglobin 27.4 pg (26-34); Mean Corpuscular Volume 87.7 fl (80-100); Mean Platelet Volume 10.9 fl (7.4-10.4); Monocytes Absolute Auto 0.6 K/mm3 (0.1-0.6); Neutrophils Absolute Auto 4.2 K/mm3 (1.3-6.7); Neutrophils Percent Auto 57.8 % (45.5-73.1); Platelet Count Result 254 k/mm3 (150-375); Red Blood Count 4.64 M/mm3 (4.2-5.4); White Blood Count 7.3 K/mm3 (4.5-10.0)
[2022-12-13 09:37] LABS: Alanine Aminotransferase 19 U/L (6-35); Albumin Level 4.5 g/dL (3.5-5.1); Alkaline Phosphatase 80 U/L (38-126); Anion Gap 6 mmol/L (8-16); Aspartate Amino Transferase 21 U/L (14-36); Bilirubin,Total 0.5 mg/dL (0.2-1.3); Blood Urea Nitrogen 18 mg/dL (7-17); Calcium 9.6 mg/dL (8.4-10.2); Carbon Dioxide 30 mmol/L (22-30); Chloride 101 mmol/L (98-107); Estimated Glomerular Filt Rate > 60; Glucose 144 mg/dL (65-110); Potassium 3.6 mmol/L (3.4-5.0); Sodium 137 mmol/L (137-145)
[2022-12-13 10:27] LABS: Thyroid Stimulating Hormone Reflex 0.427 uIU/mL (0.465-4.68)
[2022-12-13 11:17] LABS: Free T4 Free Thyroxine Reflex 1.17 ng/dL (0.78-2.19)
[2022-12-13 13:38] LABS: Total Triiodothyronine (T3) 1.67 NG/ML (0.97-1.69)
[2022-12-13 14:03] LABS: Hemoglobin A1C 6.6 % (<5.7)
== END 2022-12-13 08:54 | disposition home or self-care (01) ==
PROVIDERS: PCP Family Medicine; Visit Provider Family Medicine
DX: E04.1 Nontoxic single thyroid nodule (principal); E87.6 Hypokalemia; I10 Essential (primary) hypertension
CPT/HCPCS: 36415; 80053; 83036; 84439; 84443; 84480; 85025

== ENCOUNTER 2022-12-23 14:35 | Outpatient (CLI) | payer BC, SELFPAY ==
--- NOTE | ~2022-12-23 | US_ITS ---
EXAMINATION: US thyroid DATE: 12/23/2022 15:34 INDICATION: Nontoxic single thyroid nodule. TECHNIQUE: Multiple ultrasound images of the thyroid were obtained. COMPARISON: Ultrasound 11/07/2021, 09/04/2021 FINDINGS: The right thyroid lobe measures 5.1 x 2.8 x 2.2 cm. The left thyroid lobe measures 5.9 x 2.5 x 2.2 c m. In the right thyroid lobe, there is a 1.3 cm solid, isoechoic, wider than tall nodule with ill-de fined margin without echogenic foci (TI-RADS TR3), stable from 09/04/21. In the left thyroid lobe, the re is a 2.4 cm solid, isoechoic, wider than tall nodule with smooth margin without echogenic foci (TR 3), stable from 09/04/21. Biopsy on 11/07/21 was benign. IMPRESSION: 1. Stable pulmonary nodules, likely not clinically significant. No follow-up is needed. Reviewed, dictated and finalized at location E.
== END 2022-12-23 14:36 | disposition home or self-care (01) ==
PROVIDERS: PCP Family Medicine; Visit Provider Physician Assistant
DX: E04.1 Nontoxic single thyroid nodule (principal); R91.8 Other nonspecific abnormal finding of lung field
CPT/HCPCS: 76536

== ENCOUNTER 2023-01-09 08:25 | Outpatient (CLI) | payer BC, SELFPAY ==
--- NOTE | 2023-01-09 12:04 | WPDPFTINT ---
PFT Procedure Performed PFT Procedure Performed Spirometry with Pre/Post Bronchodilator Plethysmography (Lung Vol) Diffusing Cap (DLCO) Flow Vol Loop PFT Interpretation This is a pulmonary function test with pre and post-bronchodilator spirometry, plethysmography and diffusing capacity. The test was performed and results interpreted in accordance with the 2019 and 2005 ATS/ERS Task Force guidelines respectively using the Global Lung Function Initiative-2012 reference equations. Patient demonstrated good effort and cooperation. Reproducibility criteria were met. The quality of the pre bronchodilator spirometry maneuver was Grade A and post bronchodilator spirometry maneuver was Grade A. Findings: Spirometry: The contour the inspiratory and expiratory flow tracing are normal. The pre bronchodilator FVC is 2.40 L, 85% predicted. The pre bronchodilator FEV1 is 1.86 L, 83% predicted. The pre bronchodilator FEV1: FVC ratio 78%. The post bronchodilator FVC is 2.52 L, representing a 5% increase. The post bronchodilator FEV1 is 1.94 L, representing a 4% increase. The post bronchodilator FEV1: FVC ratio is 77%. Plethysmography: The total lung capacity is 4.78 L, 107% predicted. The functional residual capacity is 2.21 L, 81% predicted. The residual volume is 2.17 L, 121% predicted. Diffusing capacity: The diffusing capacity unadjusted for hemoglobin and carboxyhemoglobin is 14.8, 68% predicted. The diffusing capacity adjusted for alveolar volume is 4.21, 94% predicted. Impression: The spirometry is normal without evidence of an obstructive abnormality. There is no significant improvement after inhaling a single dose of albuterol. The diffusing capacity unadjusted for hemoglobin and carboxyhemoglobin is mildly decreased and normalizes when adjusted for alveolar volume. There are no prior studies for comparison
== END 2023-01-09 08:26 | disposition home or self-care (01) ==
LOC: ANHPFT 08:27
PROVIDERS: PCP Family Medicine; Visit Provider Family Medicine
DX: R05.3 Chronic cough (principal); F12.90 Cannabis use, unspecified, uncomplicated; Z72.0 Tobacco use
CPT/HCPCS: 94060; 94726; 94729

== ENCOUNTER 2023-05-20 08:15 | Outpatient (CLI) | payer BC, SELFPAY ==
[2023-05-20 09:26] LABS: Alanine Aminotransferase 26 U/L (6-35); Albumin Level 4.7 g/dL (3.5-5.1); Alkaline Phosphatase 74 U/L (38-126); Anion Gap 11 mmol/L (8-16); Aspartate Amino Transferase 28 U/L (14-36); Bilirubin,Total 0.7 mg/dL (0.2-1.3); Blood Urea Nitrogen 33 mg/dL (7-17); Calcium 9.8 mg/dL (8.4-10.2); Carbon Dioxide 31 mmol/L (22-30); Chloride 93 mmol/L (98-107); Estimated Glomerular Filt Rate 38; Glucose 216 mg/dL (65-110); Potassium 2.7 mmol/L (3.4-5.0); Sodium 135 mmol/L (137-145)
[2023-05-20 09:30] LABS: Free T4 Free Thyroxine 1.67 ng/mL (0.78-2.19)
[2023-05-20 09:43] LABS: Thyroid Stimulating Hormone 0.785 uIU/mL (0.465-4.680)
[2023-05-25 08:52] LABS: Triiodothyronine T3 Free 4.2 pg/mL (2.3-4.2)
== END 2023-05-20 08:16 | disposition home or self-care (01) ==
LOC: ANHLAB 08:16
PROVIDERS: PCP Family Medicine; Visit Provider Physician Assistant
DX: E87.6 Hypokalemia (principal); R79.89 Other specified abnormal findings of blood chemistry; E07.9 Disorder of thyroid, unspecified
CPT/HCPCS: 36415; 80053; 84439; 84443; 84481

== ENCOUNTER 2023-05-30 07:02 | Outpatient (CLI) | payer BC, SELFPAY ==
[2023-05-30 10:13] LABS: Hemoglobin A1C 7.2 % (<5.7)
[2023-05-30 11:39] LABS: Anion Gap 5 mmol/L (4-12); Blood Urea Nitrogen 19 mg/dL (7-17); Calcium 9.7 mg/dL (8.4-10.2); Carbon Dioxide 24 mmol/L (22-30); Chloride 109 mmol/L (98-107); Estimated Glomerular Filt Rate > 60; Glucose 156 mg/dL (65-110); Potassium 3.9 mmol/L (3.4-5.0); Sodium 138 mmol/L (137-145)
== END 2023-05-30 07:03 | disposition home or self-care (01) ==
LOC: ANHLAB 07:03
PROVIDERS: PCP Family Medicine; Visit Provider Physician Assistant
DX: E87.6 Hypokalemia (principal); R73.09 Other abnormal glucose
CPT/HCPCS: 36415; 80048; 83036

== ENCOUNTER 2024-12-03 07:40 | Outpatient (CLI) | payer OTHER, SELFPAY ==
--- OUTSIDE RECORDS SUMMARY | 2024-12-03 07:47 | XMS_ITS | Clinical Summary ---
Author Organization [facility] Address [address] [place] [address] Care Team Providers Care Lab Support Service Tech Name Role Phone Unavailable Primary Care Provider Unavailabl e Social History Tobacco Use Types Packs/Day Years Used Date Smoking Tobacco: Never Assessed Comments Unknown Sex and Gender Information Value Date Recorded Sex Assigned at Not on file Legal Sex Female 12:37 AM CDT Gender Identity Not on file Sexual Orientation Not on file Plan of Treatment Health Maintenance Due Date Last Done Comments Hepatitis C Virus (HCV) Screening 1965 TdaP Immunization 1965 Hepatitis B Immunization (1 of 3 - 19+ 3-dose series) 1984 Pap Smear 1986 Cervical Cancer Screening (CCS) 11/07/1995 HPV/Cotest 11/07/1995 Cologuard 2010 Colonoscopy 2010 Colorectal Cancer Screening 2010 Immunochemical Fecal Occult Blood 2010 Pneumococcal Immunization (5 0+ years) (1 of 1 - PCV) 11/07/2015 Zoster Immunization (1 of 2) 11/07/2015 Influenza Immunization (#1) 2024 SARS-COV-2 Immunization (2 - season) 2024 05/04/2020 Respiratory Syncytial Virus (RSV) Immunization (Adult) (1 - 1-dose 75+ series) 2040 Human Papillomavirus (HPV) Immunization Aged Out No longer eligible b ased on patient's age to complete this topic Meningococcal Immunization (ACWY) Aged Out No longer eligible based on patient's age to complete this topic Rotavirus Immunization Aged Out No lo nger eligible based on patient's age to complete this topic
--- OUTSIDE RECORDS SUMMARY | 2024-12-03 07:47 | XMS_ITS | Clinical Summary ---
Author Organization [facility] Address [address] [place] [address] Care Team Providers Care Television Mechanic Name Role Phone Ana Mccoy MD Primary Care Provider Allergies No known active allergies Medications cloNIDine (CATAPRES) 0.1 mg tablet Take 1 tablet (0.1 mg total) by mouth every 8 (eight) hours Active hydrALAZINE (APRESOLINE) 25 mg tabletIndicatio ns:hypertension Take 1 tablet (25 mg total) by mouth 3 (three) times a day Active amLODIPine (NORVASC) 10 mg tablet Take 1 tablet (10 mg total) by mouth daily Active ondansetron (ZOFRAN) 4 mg tablet Take 1 tablet (4 mg total) by mouth every 8 (eight) hours as needed for nausea or vomiting 20 tablet 1 07/02/2024 Active ketorolac (TORADOL) 10 mg tablet Take 1 tablet (10 mg total) by mouth every 6 (six) hours as needed for pain 20 tablet 10/17/2024 Active cyclobenzaprine (FLEXERIL) 10 mg tablet Take 1 tablet (10 mg total) by mouth 2 (two) times a day as needed for muscle spasms 20 tablet 10/17/2024 Active lidocaine (LIDODERM) 5 %Indications:Pa in Place 1 patch on the skin daily for 12 hours Use patch for 12 hours on, 12 hours off. Discard after each use 7 patch 10/17/2024 Active Active Problems Problem Noted Date Diagnosed Date Hypertensive crisis 07/01/2024 Hypertensive disorder 02/19/2024 Nausea and vomiting, unspecified vomiting type 0 07/19/2022 Encounters Date Type Department Care Team Description 10/17/2024 6:36 AM CDT - 10/17/2024 4:09 PM CDT Emergency [address] [address] Right hip pain (Primary Dx); Nausea and vomiting, unspecified vomiting type Discharge Disposition: Discharge to home or self care from Last 3 Months Surgical History Surgery Date Site/Laterality Comments NO PAST SURGERIES Medical History Medical History Date Comments Hypertension 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 No 07/02/2024 Social Connection and Isolation Panel Answer Date Recorded In a typical week, how many times do you talk on the phone with family, friends, or neighbors? More than three times a week 07/02/2024 How often do you get togethe r with friends or relatives? More than three times a week 07/02/2024 How often do you attend chur ch or sikh services? 1 to 4 times per year 07/02/2024 Do you belong to any clubs o r organizations such as jehovah's witness groups, unions, fraternal or athletic groups, or school groups? No 07/02/2024 How often do you attend meet ings of the clubs or organizations you belong to? Never 07/02/2024 Are you , , di vorced, , never , or living with a partner? Never 07/02/2024 Overall Financial Resource Strain (CARDIA) Answe r Date Recorded How hard is it for you to pa y for the very basics like food, housing, medical care, and heating? Not very hard 07/02/2024 Hunger Vital Sign Answer Date Recorded Within the past 12 months, y ou worried that your food would run out before you got the money to buy more. Never true 07/03/19 25 Within the past 12 months, t he food you bought just didn't last and you didn't have money to get more. Never true 07/02/2024 PRAPARE - Transportation Answer Date Re corded In the past 12 months, has l ack of transportation kept you from medical appointments or from getting medications? No 10/2024 In the past 12 months, has l ack of transportation kept you from meetings, work, or from getting things needed for daily living? No 07/02/2024 Housing Stability Vital Sign Answer Jordan e Recorded In the last 12 months, was t here a time when you were not able to pay the mortgage or rent on time? No 07/19/2022 In the last 12 months, how many places have you lived? 1 07/19/2022 In the last 12 months, was t here a time when you did not have a steady place to sleep or slept in a fdc (including now)? No 07/19/2022 Housing Stability Vital Sign Answer Jordan e Recorded In the last 12 months, was t here a time when you were not able to pay the mortgage or rent on time? No 07/02/2024 In the past 12 months, how m any times have you moved where you were living? 0 07/02/2024 At any time in the past 12 m [facility], were you homeless or living in a fdc (including now)? No 07/02/2024 Personal Safety Answer Date Recorded Have you ever been in or are you currently in a harmful physical or emotional relationship or is someone making you feel afraid or unsafe? Denies 10/17/2024 Comments No Sex and Gender Information Value Date Recorded Sex Assigned at Not on file Legal Sex Female 5:45 PM [employer] Gender Identity Female 10/17/2024 7:18 AM CDT Sexual Orientation Not on file Obstetrics History Last Filed Vital Signs Vital Sign Reading Time Taken Comments Blood Pressure 184/79 10/17/2024 3:34 PM CDT Pulse 89 10/17/2024 3:34 PM CDT Temperature 36.7 C (98.1 F) 10/17/2024 6:40 AM CDT Respiratory Rate 18 10/17/2024 2:12 PM CDT Oxygen Saturation 100% 10/17/2024 2:12 PM CDT Inhaled Oxygen Concentration - - Weight 83.9 kg (185 lb) 10/17/2024 6:40 AM CDT Height 162.6 cm (5' 4) 10/17/2024 6:40 AM CDT Body Mass Index 31.76 10/17/2024 6:40 AM CDT Plan of Treatment Health Maintenance Due Date Last Done Comments Breast Cancer Screening-Mammogram 1965 Cervical Cancer Screening 1965 Colon Cancer Screening-Colonoscopy 1965 Depression Screening 1965 Hepatitis C Screening 1965 Hepatitis B Screening 11/07/1983 Regular Well Visit/Exam 18-64 11/07/1983 Pneumococcal vaccine <65 (1 of 2 - PCV) 1984 Zoster Vaccine (1 of 2) 11/07/2015 Covid-19 Vaccine (3 - season) 10/25/202401/2022, 05/04/2020 Influenza Vaccine (#1) 2024 DTaP/Tdap/Td Vaccine (2 - Td or Tdap) 02/19/2034 Procedures Procedure Name Priority Date/Time Associated Diagnosis Comments URINALYSIS AND REFLEX TO MICROSCOPIC AND CULTURE STAT 10/17/2024 9:22 AM CDT TSH STAT 10/17/2024 9:18 AM CDT EGFR STAT 10/17/2024 9:18 AM CDT DIFFERENTIAL AUTO STAT 10/17/2024 9:1 8 AM CDT CBC WITH AUTO DIFFERENTIAL STAT 10/17/2024 9:18 AM CDT COMPREHENSIVE METABOLIC PANEL STAT 10/17/2024 9:[address] HIP RIGHT WO CONTRAST ED 10/17/2024 9:14 AM CDT XR HIP RIGHT 2 OR 3 VIEWS ED 10/17/2024 6:52 AM CDT from Last 3 Months Results * Urinalysis reflex to microscopic and culture Urine (10/17/2024 9:22 AM CDT) Pathologist [facility] Color, ur Straw Yellow Clarity, ur Clear Clear [facility] Specific gravity, ur 1.016 1.003 - 1.030 [facility] pH, urine 5.5 [facility] Comment: Interpretive Data U rine pH is affected by diet, medications, systemic acid-base disturbances, and renal tubular function. pH may affect urinary stone formation. For example, urine pH below 6.0 may help reduce the tendency for calcium phosphate stones and pH greater than 6.0 may reduce the tendency for uric acid stone formation. Source: [facility] Current Interpretive Data was last revised on 2017 Protein, ur ql Negative Negative [facility] Glucose, ur ql Negative Negative [facility] Ketones, ur Negative Negative [facility] Bilirubin, ur Negative Negative [facility] Blood, ur Negative Negative [facility] Urobilinogen, ur <2.0 <2.0 mg/dL [facility] Nitrite, ur Negative Negative [facility] Leukocyte esterase, ur Negative Negative [facility] UA reflex comment Reflex conditions for microscopic UA and culture not met. [facility] Urine 10/17/2024 9:22 AM CDT 10/17/2024 9:25 AM CDT Yaw Llanes DO LAB MICROBIOLOGY - GENERAL ORDERABLES Final Result [facility] [address] [facility] Department [place] [address] * eGFR (10/17/2024 9:18 AM CDT) Pathologist [facility] eGFR 70 >=60 mL/min/1. 73 m2 Comment: Interpretive Data Reference Interval Normal >/= 90 mL/min/1.73m2 Mildly decreased* 60 - 89 mL/min/1.73m2 Mildly to moderately decreased 45 - 59 mL/min/1.73m2 Moderately to severely decreased 30 - 44 mL/min/1.73m2 Severely decreased 15 - 29 mL/min/1.73m2 Kidney Failure < 15 mL/min/1.73m2 *Relative to young adult level Estimated glomerular filtration rate is determined by the 2020 CKD-EPI equation recommended by the National Kidney Foundation (A Unifying Approach to GFR Estimation: Recommendations of the NKF-ASK Task Force on Reassessing the Inclusion of Race in Diagnosing Kidney Disease, JASN 2020). The CKD-EPI equation should not be used for patients with unstable renal function and has not been validated in children and those over 70. Current interpretive data was last reviewed 2020. Blood 10/17/2024 9:18 AM CDT 10/17/2024 9:21 AM CDT us Yaw Llanes DO LAB BLOOD ORDERABLES Final Result [facility] [address] [facility] [facility] Department of Laboratories [place], [place] [id number] * (ABNORMAL) Differential, auto (10/17/2024 9:18 AM CDT) Neutrophil abs 7.87(H) 1.50 - 6.50 K/cumm Imm gran abs 0.04 0.00 - 0.10 K/cumm [facility] Lymphocyte abs 2.16 0.80 - 3.30 K/cumm [facility] Monocyte abs 0.39 0.20 - 0.80 K/cumm [facility] Eosinophil abs 0.03 0.00 - 0.50 K/cumm [facility] Basophil abs 0.05 0.00 - 0.10 K/cumm [facility] Neutrophil pct 74.6 % [facility] Comment: Interpretive Data Percent cell count reference ranges are not reported, since discordance with absolute values may lead to misinterpretation of CBC data. Current Interpretive Data was last revised on 2017. Imm gran pct 0.4 % [facility] Comment: Interpretive Data Percent cell count reference ranges are not reported, since discordance with absolute values may lead to misinterpretation of CBC data. Current Interpretive Data was last revised on 2017. Lymphocyte pct 20.5 % [facility] Comment: Interpretive Data Percent cell count reference ranges are not reported, since discordance with absolute values may lead to misinterpretation of CBC data. Current Interpretive Data was last revised on 2017. Monocyte pct 3.7 % [facility] Comment: Interpretive Data Percent cell count reference ranges are not reported, since discordance with absolute values may lead to misinterpretation of CBC data. Current Interpretive Data was last revised on 2017. Eosinophil pct 0.3 % [facility] Comment: Interpretive Data Percent cell count reference ranges are not reported, since discordance with absolute values may lead to misinterpretation of CBC data. Current Interpretive Data was last revised on 2017. Basophil pct 0.5 % [facility] Comment: Interpretive Data Percent cell count reference ranges are not reported, since discordance with absolute values may lead to misinterpretation of CBC data. Current Interpretive Data was last revised on 2017. Blood 10/17/2024 9:18 AM CDT 10/17/2024 9:21 AM CDT Yaw Llanes DO LAB BLOOD ORDERABLES Final Result [facility] [address] [facility] Department [place] [address] * (ABNORMAL) CBC with auto differential (10/17/2024 9:18 AM CDT) WBC 10.54(H) 3.80 - 9.90 K/cumm Hgb 14.5 11.9 - 15.5 g/dL [facility] Hct 44.2 35.6 - 45.5 % [facility] Plt 281 150 - 400 K/cumm [facility] MPV 10.1 9.1 - 12.3 fL [facility] RBC 5.28(H) 3.90 - 5.20 M/cumm [facility] MCV 83.7 81.3 - 96.4 fL [facility] MCH 27.5 27.1 - 33.3 pg [facility] MCHC 32.8 32.3 - 35.7 g/dL [facility] RDW CV 14.6 11.1 - 14.9 % [facility] RDW SD 44.4 35.7 - 48.1 fL [facility] NRBC abs 0.00 0.00 - 0.01 K/cumm [facility] Blood 10/17/2024 9:18 AM CDT 10/17/2024 9:21 AM CDT Yaw Llanes DO LAB BLOOD ORDERABLES Final Result Performing Organization Address City/[facility]/ZIP Co de Phone Number [address] [address] * TSH (10/17/2024 9:18 AM CDT) [facility] Thyroid Stimulating Hormone 0.52 0.30 - 4.20 mcIUnit/mL Blood 10/17/2024 9:18 AM CDT 10/17/2024 9:21 AM CDT Gabi MORALES LAB BLOOD ORDERABL ES Final Result Performing Organization Address [facility] Co de Phone Number [address] [address] * (ABNORMAL) Comprehensive metabolic panel (10/17/2024 9:18 AM CDT) [facility] Sodium 139 135 - 145 mmol/L Potassium, pl 3.5 3.3 - 4.9 mmol/L [facility] Chloride 102 97 - 110 mmol/L [facility] CO2 22 22 - 32 mmol/L [facility] Anion gap 15 2 - 15 mmol/L [facility] BUN 30(H) 6 - 25 mg/dL [facility] Creatinine 0.94 0.60 - 1.10 mg/dL [facility] Glucose 169 70 - 199 mg/dL [facility] Comment: Interpretive Data Fasting glucose >/= 126 mg/dl is diagnostic for diabetes. Fasting is defined as no caloric intake for at least 8 hours. Fasting glucose between 100 mg/dl to 125 mg/dl is diagnostic of prediabetes. In a patient with classic symptoms of hyperglycemia or hyperglycemic crisis, a random glucose >/= 200 mg/dl is diagnostic for diabetes. In the absence of unequivocal hyperglycemia, results should be confirmed by repeat testing. The classification and Diagnosis of Diabetes Diabetes Care 202; 46: S19-S40. Current interpretive data was last revised 2022. Calcium 10.2 8.5 - 10.3 mg/dL [facility] Bilirubin, total 0.3 0.1 - 1.2 mg/dL [facility] Protein, pl 7.6 6.5 - 8.5 g/dL [facility] Albumin 4.6 3.5 - 5.0 g/dL [facility] Alk phos 98 40 - 130 Units/L [facility] ALT 14 7 - 45 Units/L [facility] AST 16 10 - 45 Units/L [facility] Blood 10/17/2024 9:18 AM CDT 10/17/2024 9:21 AM CDT us Yawlatrice Llanes DO LAB BLOOD ORDERABLES Final Result [facility] [address] [facility] [facility] Department [place] [address] * CT Hip Right WO Contrast (10/17/2024 9:14 AM CDT) Anatomical Region Laterality Modality Lower Extremities Right Computed Tomog mirella 10/17/2024 9:49 AM CDT Narrative 10/17/2024 9:51 AM CDT EXAM DESCRIPTION: CT HIP RIGHT WO CONTRAST REASON FOR STUDY: Osteonecrosis, hip, xray done Pt BIBEMS from home c/o R hip pain x 1 week. Pt was seen in PCP office and dx with inflammation. Pt given steroid injection into right hip. States that pain started to return yesterday and progressively worsened. Tried ibuprofen at 1900 without relief. States that pain kept her up all night. Denies injury. +PMS to RLE Hx: HTN TECHNIQUE: CT scan of the right hip was performed without intravenous contrast. Reconstructed coronal and sagittal MPR images reviewed. Automated exposure control was used as a dose optimization technique for this examination. COMPARISON: 10/17/2024 FINDINGS: Pelvic Bones: Incompletely visualized. No visible fracture. Hip Joint: No fracture or dislocation. Pelvic Soft Tissues: Unremarkable. Other: No other finding. IMPRESSION: No significant findings. THIS IS AN ELECTRONICALLY VERIFIED FINAL REPORT 10/17/2024 9:51 AM - Electronically signed by Scooter Lord M.D. RB T: Report ID: [id number] Reading Location: [id number] Procedure Note Scooter Lord MD - 10/17/2024 EXAM DESCRIPTION: CT HIP RIGHT WO CONTRAST REASON FOR STUDY: Osteonecrosis, hip, xray done Pt BIBEMS from home c/o R hip pain x 1 week. Pt was seen in PCP office anddx with inflammation. Pt given steroid injection into right hip. States thatpain started to return yesterday and progressively worsened. Tried ibuprofen at 1900 without relief. States that pain kept her up all night. Deniesinjury. +PMS to RLE Hx: HTN TECHNIQUE: CT scan of the right hip was performed without intravenous contrast. Reconstructed coronal and sagittal MPR images reviewed.Automated exposure control was used as a dose optimization technique for this examination. COMPARISON: 10/17/2024 FINDINGS: Pelvic Bones: Incompletely visualized. No visible fracture. Hip Joint: No fracture or dislocation. Pelvic Soft Tissues: Unremarkable. Other: No other finding. IMPRESSION: No significant findings. THIS IS AN ELECTRONICALLY VERIFIED FINAL REPORT 10/17/2024 9:51 AM - Electronically signed by Scooter HAYNES T: Report ID: [id number] Reading Location: [id number] Gabi MORALES [address]phine CT PROCEDURES Final Result * XR Hip Right 2 or 3 Views (10/17/2024 6:52 AM CDT) Anatomical Region Laterality Modality Lower Extremities, Hip, Pelvis Right C omputed Radiography 10/17/2024 7:03 AM CDT Narrative 10/17/2024 7:04 AM CDT EXAM DESCRIPTION: XR HIP RIGHT 2 OR 3 VIEWS REASON FOR STUDY: pain Pt BIBEMS from home c/o R hip pain x 1 week. Pt was seen in PCP office and dx with inflammation. Pt given steroid injection into right hip. States that pain started to return yesterday and progressively worsened. Tried ibuprofen at 1900 without relief. States that pain kept her up all night. Denies injury. +PMS to RLE TECHNIQUE: Two views COMPARISON: 07/01/2024 FINDINGS: No fracture or dislocation. No lytic or destructive process. Ypdz-vc-gwvnfngp degenerative change acromion and right SI joint. Soft tissues unremarkable. IMPRESSION: Uciv-jn-wzlvaqsi degenerative changes right hip. THIS IS AN ELECTRONICALLY VERIFIED FINAL REPORT 10/17/2024 7:04 AM - Electronically signed by Scooter HAYNES T: Report ID: [id number] Reading Location: [id number] Procedure Note Scooter Lord MD - 10/17/2024 EXAM DESCRIPTION: XR HIP RIGHT 2 OR 3 VIEWS REASON FOR STUDY: pain Pt BIBEMS from home c/o R hip pain x 1 week. Pt was seen in PCP office anddx with inflammation. Pt given steroid injection into right hip. States thatpain started to return yesterday and progressively worsened. Tried ibuprofen at 1900 without relief. States that pain kept her up all night. Deniesinjury. +PMS to RLE TECHNIQUE: Two views COMPARISON: 07/01/2024 FINDINGS: No fracture or dislocation. No lytic or destructive process. Tyxj-zw-dcingrfc degenerative change acromion and right SI joint. Soft tissues unremarkable. IMPRESSION: Osgz-gv-desvnabz degenerative changes right hip. THIS IS AN ELECTRONICALLY VERIFIED FINAL REPORT 10/17/2024 7:04 AM - Electronically signed by Scooter HAYNES T: Report ID: [id number] Reading Location: [id number] Gabi MORALES IMG XR PROCEDURES Final Result from Last 3 Months Insurance [facility] Advance Directives For more information, please contact: [phone] * Full Code (Latest Code Status on File) Date Activated Date Inactivated Comments 07/01/2024 11:02 PM 07/02/2024 7:59 PM * Full Code Date Activated Date Inactivated Comments 07/01/2024 10:05 PM 07/01/2024 11:02 PM * Full Code Date Activated Date Inactivated Comments 07/19/2022 6:50 AM 07/21/2022 9:06 AM Care Teams Television Mechanic Relationship Specialty Start Date End Date Ana Mccoy MD [address] [facility] [address] [facility] [address] [place] [address] PCP - General Family Medicine 07/18/22
[2024-12-03 08:31] LABS: Hemoglobin A1C 6.5 % (<5.7)
[2024-12-03 08:33] LABS: Alanine Aminotransferase 17 U/L (6-35); Albumin Level 4.4 g/dL (3.5-5.1); Alkaline Phosphatase 83 U/L (38-126); Anion Gap 8 mmol/L (4-12); Aspartate Amino Transferase 24 U/L (14-36); Bilirubin,Total 0.5 mg/dL (0.2-1.3); Blood Urea Nitrogen 17 mg/dL (7-17); Calcium 9.3 mg/dL (8.4-10.2); Carbon Dioxide 25 mmol/L (22-30); Chloride 105 mmol/L (98-107); Estimated Glomerular Filt Rate > 60; Glucose 127 mg/dL (65-110); Potassium 3.6 mmol/L (3.4-5.0); Sodium 138 mmol/L (137-145); Total Protein 7.4 g/dL (6.3-8.2)
== END 2024-12-03 07:41 | disposition home or self-care (01) ==
LOC: ANHLAB 07:43
PROVIDERS: PCP Family Medicine; Visit Provider Student in an Organized Health Care Education/Training Program
DX: E11.9 Type 2 diabetes mellitus without complications (principal); I10 Essential (primary) hypertension
CPT/HCPCS: 36415; 80053; 83036

== ENCOUNTER 2024-12-10 08:07 | Outpatient (CLI) | payer OTHER, SELFPAY ==
--- NOTE | ~2024-12-10 | CT_ITS ---
EXAMINATION: CT abdomen wo/w con DATE: 12/10/2024 08:56 INDICATION: Other specified disorders of adrenal gland. TECHNIQUE: Computed tomography (CT) of the abdomen was performed without and with 100 mL Omnipaque 350 intravenous contrast. Automated exposure control and iterative reconstruction technique were employed. The dose-length product was 2287.18 mGy-cm. COMPARISON: CT 04/03/2022 FINDINGS: The visualized portions of the lung bases demonstrate mild atelectasis. No pleural effusion. The heart size is normal. There are coronary artery calcifications. No pericardial effusion. The liver, gallbladder, spleen, pancreas, and right adrenal gland are normal. There is a 2.9 cm mass in left adrenal gland measuring 16 HU on noncontrast images, 83 HU on arterial phase images, and 28 HU on delayed images yield an absolute washout of 82% and a relative washout of 66%, consistent with an adenoma. There are cysts in the kidneys measuring up to 3.8 cm on the left. There are no dilated loops of bowel. There are no pathologically enlarged lymph nodes. There is no free intraperitoneal fluid. There is severe thoracic and lumbar spondylosis. IMPRESSION: 1. 2.9 cm left adrenal adenoma, stable from 04/03/2022. Reviewed, dictated and finalized at location E.
--- OUTSIDE RECORDS SUMMARY | 2024-12-10 08:17 | XMS_ITS | Data Portability ---
Author Organization [facility] PINGMiguelangel Address [address] [place] [address] Assessment No assessment recorded. Plan of Treatment Reminders Order Date Submit Date Provider Last Modified By Organization Details Last Modified Time Details Appointments None recorded. Lab unlisted lab - quantiferon -TB gold plus 2023 024 [facility] (Lab), [address] [place], [address], 4 20:09:33 unlisted lab - measles/mum ps/rubella immunity 2023 024 [facility] (Lab), [address] [place], [address], 4 07:12:53 Referral None recorded. Procedures None recorded. Surgeries None recorded. Imaging XR, chest, 2 view 2022 023 [email or web address] [facility] (Rad), [address] [place], [address], 3 13:05:27 Medication Orders ondansetron 8 mg disintegrat ing tablet 2023 024 [id number], [address] [place], [place], [id number], 4 13:03:58 Patient TargetsNo targets recorded. Patient Instructions Encounter Date Encounter Id Patient Instructions Last Modified By Organization Details Last Modified Time 05/17/2023 [id number] nausea and vomiting: care instructions [email or web address] Not available 05/17/2023 13:03:50 A healthy lifestyle: care instructions [email or web address] Not available 05/17/2023 13:03:49 Follow up with PCP as directed. Take all medications as directed. Refer to d/c handout for further d/c instructions. [email or web address] Not available 05/17/2023 13:03:49 02/20/2024 [id number] Quitting Tobacco : Care Instructions [email or web address] Not available 02/20/2024 12:48:14 A healthy lifestyle: care instructions [email or web address] Not available 02/20/2024 12:48:14 high blood pressure: care instructions [email or web address] Not available 02/20/2024 12:27:54 testing can take a few days for results to come back , the MMR and TB. You received the TDAP injection today here. You should contact your primary doctor to follow up on your blood pressure, uncontrolled blood pressure can be dangerous even deadly. please go home and take your prescribed medication. [facility] provides medical screening exams and initial stabilizing treatment of emergency medical conditions. Medicine is an inexact science and many conditions cannot be diagnosed or completely treated during a single visit. Your treating healthcare provider(s) today feel your condition has been stabilized so further care as an outpatient is reasonable. [facility] does not substitute for complete, ongoing, or follow-up care by your primary care physician or business info consultant. Follow up in 2-3 days with your primary care provider, or if symptoms worsen go to the ER. Our practice is committed to providing you the very best in healthcare. It is our pleasure to have the opportunity to take care of you. [email or web address] Not available 02/20/2024 12:31:18 Reason for Referral None Reported. Results Created Date Observation Date Name Description Value Unit Range Abnormal Flag Note LastModifiedBy Organization Detail LastModifiedTime 02/20/20 24 02/22/2024 MEASL ES/MU MPS/R UBELL A IMMUN ITY rubella antibodies, IgG 30.20 index immune >0.99 Non-i mmune <0.90 Equiv ocal 0.90 - 0.99 Immun e >0.99 Not Available [facility] (Lab) [address] [place], [address], 02/22/2024 07:12:53 02/20/20 24 02/22/2024 MEASL ES/MU MPS/R UBELL A IMMUN ITY measles antibodies, IgG 84.2 AU/mL immune >16.4 Negat sandy <13.5 Equiv ocal 13.5 - 16.4 Posit sandy >16.4 Prese nce of antib odies to Rubeo la is presu mptiv e evide nce of immun ity excep t when acute infec tion is suspe cted. Not Available [facility] (Lab) [address] [place], [address], 02/22/2024 07:12:53 02/20/20 24 02/22/2024 MEASL ES/MU MPS/R UBELL A IMMUN ITY mumps abs, IgG 283.0 AU/mL immune >10.9 Negat sandy <9.0 Equiv ocal 9.0 - 10.9 Posit sandy >10.9 A posit sandy resul t gener ally indic ates past expos ure to Mumps virus or previ ous vacci natio n. Perfo [place]med at: 01 - [place] [address] Lab Direc tor: Luis gallardo PhD, Phone : [phone] Not Available [facility] (Lab) [address] [facility], [place], [address], 02/22/2024 07:12:53 02/20/20 24 02/24/2024 QUANT IFERO N-TB GOLD PLUS quantiferon incubation . Incub ation perfo rmed. Refer ence Range : . Not Available [facility] (Lab) [address] [place], [address], 02/24/2024 20:09:33 02/20/20 24 02/24/2024 QUANT IFERO N-TB GOLD PLUS quantiferon- TB gold plus NEGATI VE negati ve No respo nse to M tuber culos is antig ens detec sanford. Infec tion with M tuber culos is is unlik casie, but high risk indiv idual s shoul d be consi dered for addit ional testi ng (ATS/ IDSA/ CDC Clini john Pract ice Guide lines , 2017) . The refer ence range is an Antig en minus Nil resul t of <0.35 IU/mL . Chemi lumin escen ce immun oassa y metho dolog y Perfo rmed at: 01 - [facility] [address] [facility], [facility] [place] [address] Lab Direc tor: Luis gallardo PhD, Phone : [phone] Not Available [facility] (Lab) [address] [place], [address], 02/24/2024 20:09:33 02/20/20 24 02/24/2024 QUANT IFERO N-TB GOLD PLUS quantiferon criteria COMMEN T . Quant iFERO N-TB Gold Plus is a quali tativ e indir ect test for M tuber culos is infec tion (incl uding disea se) and is inten ded for use in conju nctio n with risk asses sment , radio graph y, and other medic al and diagn ostic evalu ation s. The Quant iFERO N-TB Gold Plus resul t is deter mined by subtr actin g the Nil value from eithe r TB antig en (Ag) value . The Mitog en tube serve s as a contr ol for the test. Not Available [facility] (Lab) [address] [place], [address], 02/24/2024 20:09:33 02/20/20 24 02/24/2024 QUANT IFERO N-TB GOLD PLUS quantiferon TB1 Ag value 0.01 IU/mL . Not Available [facility] (Lab) [address] [place], [address], 02/24/2024 20:09:33 02/20/20 24 02/24/2024 QUANT IFERO N-TB GOLD PLUS quantiferon TB2 Ag value 0.04 IU/mL . Not Available [facility] (Lab) [address] [place], [address], 02/24/2024 20:09:33 12/27/20 24 02/24/2024 QUANT IFERO N-TB GOLD PLUS quantiferon nil value 0.01 IU/mL . Not Available [facility] (Lab) [address] [place], [address], 02/24/2024 20:09:33 02/20/20 24 02/24/2024 QUANT IFERO N-TB GOLD PLUS quantiferon mitogen value >10.00 IU/mL . Not Available [facility] (Lab) [address] [facility], [place], [address], 02/24/2024 20:09:33 Result Notes None recorded. Problems Name Problem SNOMED Code Status Onset Date Resolution Date Notes Provider Name and Address Organization Details Recorded Time Hypertensive disorder 48327604 Active 2023 Ivis Christianson MA [facility], [facility] 12:20:15 Problem Notes None recorded. Medical Equipment None Reported. Allergies No known drug allergies Medications Name Sig Start Date Stop Date Status Note LastModified by Organization Details LastModified Time atorvastati n 40 mg tablet active Not Available Not Available Not Available buspirone 5 mg tablet TAKE 1 TABLET BY MOUTH TWICE DAILY active Not Available Not Available No t Available metformin 500 mg tablet active Not Available Not Available Not Available clonidine HCl 0.1 mg tablet TAKE 1 TABLET BY MOUTH EVERY 8 HOURS active Not Available Not Available No t Available prednisone 10 mg tablet active Not Available Not Available Not Available lisinopril 20 mg tablet TAKE 1 TABLET BY MOUTH TWICE DAILY active Not Available Not Available No t Available ondansetron HCl 4 mg tablet TAKE 1 TABLET BY MOUTH EVERY 6 HOURS NEEDED FOR NAUSEA/VO MITING active Not Available Not Available No t Available clonazepam 0.5 mg tablet TAKE 1 TABLET BY MOUTH THREE TIMES DAILY NEEDED FOR ANXIETY UP TO 10 DAYS active Not Available Not Available No t Available hydralazine 25 mg tablet TAKE 1 TABLET BY MOUTH THREE TIMES DAILY active Not Available Not Available No t Available metoprolol tartrate 50 mg-hydrochl orothiazide 25 mg tablet TAKE 1 TABLET BY MOUTH DAILY active Not Available Not Available No t Available triamterene 37.5 mg-hydrochl orothiazide 25 mg capsule TK ONE C PO QD active Not Available Not Available No t Available ondansetron 8 mg disintegrat ing tablet DISSOLVE 1 TABLET ON THE TONGUE TWICE DAILY NEEDED active Not Available Not Available No t Available potassium chloride ER 20 mEq tablet,exte nded release(par t/cryst) TAKE 2 TABLETS BY MOUTH TWICE DAILY FOR 7 DAYS active Not Available Not Available No t Available dicyclomine 20 mg tablet TK 1 T PO BID. active Not Available Not Available No t Available amlodipine 10 mg tablet TAKE 1 TABLET BY MOUTH DAILY active Not Available Not Available No t Available pantoprazol e 40 mg tablet,lauren yed release TAKE 1 TABLET BY MOUTH Q MORNING active Not Available Not Available No t Available ergocalcife rol (vitamin D2) 1,250 mcg (50,000 unit) capsule TAKE 1 CAPSULE BY MOUTH 1 TIME A WEEK FOR 7 DOSES active Not Available Not Available No t Available lorazepam 1 mg tablet TK 1 T PO BID PRF NERVOUSNE SS 02/19 completed Not Available Not Available Not Available sertraline 50 mg tablet TAKE 1 TABLET BY MOUTH DAILY active Not Available Not Available No t Available potassium chloride ER 20 mEq tablet,exte nded release active Not Available Not Available Not Available Breztri Aerosphere 160 mcg-9mcg-4. 8mcg/actuat ion HFA aerosol inhaler INHALE 2 PUFFS BY MOUTH DAILY IN THE MORNING AND EVENING active Not Available Not Available No t Available Vitals Date Recorded Body height Body mass index (BMI) Body weight Oxygen saturation Oxygen saturation in Arterial blood by Pulse oximetry Heart rate Body temperature Systolic And Diastolic Provider Name and Address Organization Details Last Updated DateTime 4 162.56 cm 30.9 kg/m2 23553.6 3 g 98 % 98 % 81 /min 98.6 [degF] 185/116 mm[Hg] Lissette Felder [place] [facility] 4 12:41:07 Date Recorded Body height Body mass index (BMI) Body weight Heart rate Systolic And Diastolic Provider Name and Address Organization Details Last Updated DateTime 01/01/2023 162.56 cm 35.9 kg/m2 05239.08 g 72 /min 124/70 mm[Hg] Lilian Coronado [place] [facility] 01/01/2023 14:33:24 Date Recorded Body height Body mass index (BMI) Body weight Oxygen saturation Oxygen saturation in Arterial blood by Pulse oximetry Heart rate Respiratory rate Body temperature Systolic And Diastolic Provider Name and Address Organization Details Last Updated DateTime 162.56 cm 35.4 kg/m2 56550.7 8 g 98 % 98 % 84 /min 16 /min 98.2 [degF] 196/97 mm[Hg] Ivis Christianson [place] [facility] 12:19:02 Social History Question Answer Notes LastModified by Organizat ion Details LastModified Time Tobacco Smoking Status Current Some Day Smoker Lissette Felder [place] null, [place] [facility] 05/17/2023 12:41:42 Do You Have An Advance Directive? Yes Information n ot available 02/20/2024 Are You Blind Or Do You Have Difficulty Seeing? Yes Information n ot available 02/20/2024 What Is Your Level Of Caffeine Consumption? None Information not available 05/17/2023 In The 14 Days Before Symptom Onset, Have You Had Close Contact With A Laboratory-confirm ed COVID-19 While That Case Was Ill? No Information n ot available 05/17/2023 In The 14 Days Before Symptom Onset, Have You Had Close Contact With A Person Who Is Under Investigation For COVID-19 While That Person Was Ill? No Information not available 05/17/2023 Have You Been To An Area Known To Be High Risk For COVID-19? No Information not available 05/17/2023 Are You Deaf Or Do You Have Serious Difficulty Hearing? No Information not available 02/20/2024 What Type Of Diet Are You Following? REGULAR Information n ot available 05/17/2023 Are There Any Guns Present In Your Home? No Information not available 02/20/2024 What Was The Date Of Your Most Recent Tobacco Screening? 02/20/2024 Information not available 02/20/2024 What Is Your Current Pack Years? [id number] rs Information not available 02/20/2024 Do You Use Protection During Sex? No Information not available 02/20/2024 What Is Your Relationship Status? Unknown Information not available 05/17/2023 Do You Use Your Seat Belt Or Car Seat Routinely? Yes Information not available 02/20/2024 Are You Sexually Active? Yes Information not available 02/20/2024 Do You Have Smoke And Carbon Monoxide Detectors In Your Home? Yes Information not available 02/20/2024 Are You Passively Exposed To Smoke? Yes Information no t available 02/20/2024 How Much Tobacco Do You Smoke? 1 PPW [email or web address] Information not available 01/01/2023 Do You Use Sunscreen Routinely? No Information not available 02/20/2024 Has Tobacco Cessation Counseling Been Provided? Yes Information not available 02/20/2024 On What Date Was Tobacco Cessation Counseling Provided? 02/20/2024 Information not available 02/20/2024 Sex: Female Functional Status Question Answer Note LastModified by [employer] ion Details LastModified Time Do you use any illicit or recreational drugs? No Information not available 05/17/2023 What is your level of alcohol consumption? None Information not available 05/17/2023 Are you currently employed? Yes Information not available 02/20/2024 Are you able to care for yourself independently? Yes Information not available 05/17/2023 What is your exercise level? None Information not available 05/17/2023 Mental Status Question Answer Note LastModified by Organization D etails LastModified Time Do you feel stressed (tense, restless, nervous, or anxious, or unable to sleep at night)? [id number] Information not available 05/17/2023 Family History Nothing Reported. Medical History Condition Response Coronary Artery Disease N Other N High Blood Pressure Y Atrial Fibrillation N Thyroid Problems N Kidney or Bladder Problems N GI Problems N Depression N COPD N Blood Clots N Have you had a mammogram in the last yea r? N Skin Problems N Eating Disorder N Anemia N Heart Attack (PA) N Diabetes Y Anxiety Disorder N Muscle, Joint, or Bone Problems N Seizures/Epilepsy N Have you had a colonoscopy in the last 1 0 years? N Arthritis N Acid Reflux (GERD) N Cancer N Stroke N Asthma N Allergies N Have you had a PSA blood test in the las t year? N ADHD N Substance Abuse N High Cholesterol N Hepatitis N Liver Disease N Schizophrenia N Headaches N Osteoporosis N Heart Failure N Gynecological History Statement/Question Response Current Control Method Menopause On BCP's at Conception? N Obstetrics History GPAL:G 0 P 0 0 0 0 Immunizations Vaccine Type Date Status Note Provider Wilson richards and Address Organization Details Recorded Time Tdap 02/20/2024 completed Ivis Christianson MA 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 No concerns on exam. Paperwork was provided by the patient for me to fill out. Paperwork indicated she needed to have had two MMR vaccines in the past or titers to prove immunity. Also indicated she needed a TB test. When discussing this with the patient she became very agitated and stated 'my last doctor just signed the damn paperwork so why can't you'. I informed the patient that I was just going by the regulation s put in place for childcare workers. I told the patient that she was welcome to get a second opinion from her former doctor that signed the paperwork and she stated he retired. She then snatched the paperwork out of my hand and left the clinic. Tuberculos is screening 432639444 Z11.1 [id number] ARTHUR SAEZ NP [facility] [address] [place] [address] 05/17/2023 12:34:34 05/19/2023 09:02:05 Obesity 978922854 E66.9 Nausea and vomiting 1693 1999 R11.2 [id number] SHARONDA MONTIEL MD [facility] [address] [place] [address] 02/20/2024 11:40:58 02/23/2024 09:53:28 Essential hypertension 69960160 I10 advised to take medication s, f/u with PCP for re-check Administra tion of diphtheria, pertussis, and tetanus vaccine 271946391 Z23 Morbid obesity 341275657 E66.01 Smoker 11503389 F17.200 Tuberculos is screening 440462205 Z11.7 Adult heal th examination 483539342 Z00.00 Health Concerns Section Related Observation LastModified by Organization Detai ls LastModified Time None Recorded Concern Status LastModified by Organization Details LastModified Time None Recorded Advance Directives Directive Y: Payers Insurance Date Sequence Insurance Name Policy Number Policy Tinsley Covered Member ID Tinsley Member ID Guarantor Name 12/26/2022 1 *SELF PAY* Do hagan Akash 02/20/2024 1 [employer] [id number] Doreen Akash [id number] Doreen Akash Notes Date Note Type Note Provider Name and Address Organization Details Recorded Time 01/01/2023 text/html ROS as noted in the HPI Pt here for physical for work at a daycare. Denies issues focusing at work. No issues with lifting, bending over, or walking. No chest pain, SOB, headaches, or vision changes. ROSA ISELA VALLE DO Attn: [address] [facility], [place], [address], [facility] 01/01/2023 15:40:55 05/17/2023 text/html ROS as noted in the HPI 57 year old presents to [facility] with complaints of recurrent vomiting since Friday. She states she went to [facility] ED on Friday and they ran several tests including lab work, ultrasound of her abdomen and EKG. She states all were negative. She states she was given some zofran in the ED and helped but did not get d/c with any antinausea medications. She states she was told that her nausea could be because of her cannibas use. She states she has not used cannibas in the last two weeks. She denies any fever, abdominal pain. She states her recent flu and covid were negative. She states her last BM was 3 days ago and had mild diarrhea. She states her appetite has been poor. She also states she has been drinking gatorade and other fluids to stay hydrated. She denies any chest pain, vomiting blood or coughing up blood or blood in her stool. ARTHUR SAEZ NP Attn: [address] [facility], [place], [address], [facility] 05/17/2023 13:04:08 02/20/2024 text/html ROS as noted in the HPI patient presents today needing some testing for work. States she needs MMR/TDAP/TB testing. She is unsure if this is MMR vaccine or testing. She state she should be UTD on the MMR as she got her vaccines as a child.Of note she is hypertensive, has known HTN- denies taking her prescribed medications today. denies illness, headache, dizziness, chest pain, vision changes, shortness of breath. FRANTZ DELGADO NP Attn: [address] [facility], [place], [address], [facility] 02/20/2024 12:48:27 OBGyn Episode No OBEpisode recorded.
--- OUTSIDE RECORDS SUMMARY | 2024-12-10 08:17 | XMS_ITS | Clinical Summary ---
Author Organization [facility] Address [address] [place] [address] Care Team Providers Care Erp Specialist Name Role Phone Ana Mccoy MD Primary [...] CDT - 10/17/2024 4:09 PM CDT Emergency [address] [address] Right hip pain (Primary Dx); Nausea and [...] uit: Not Asked; Counseling Given: Not Answered [facility] Utilities Answer Date Recorded In the [...] often do you attend chur ch or buddhist services? 1 to 4 times per year 07/02/2024 Do you belong to any clubs o r organizations such as quaker groups, unions, fraternal or athletic groups, or [...] place to sleep or slept in a alf (including now)? No 07/19/2022 Housing Stability Vital Sign Answer Jordan e Recorded In the last 12 months, was t here a time when you were not able to pay the mortgage or rent on time? No 07/02/2024 In the past 12 months, how m any times have you moved where you were living? 0 07/02/2024 At any time in the past 12 m [facility], were you homeless or living in a alf (including now)? No 07/02/2024 Personal Safety Answer Date Recorded Have you ever been in or are you currently in a harmful physical or emotional relationship or is someone making you feel afraid or unsafe? 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 pH may affect urinary stone formation. For example, urine pH below 6.0 may help reduce the tendency for calcium phosphate stones and pH greater than 6.0 may reduce the tendency for uric acid stone formation. Source: [facility] Current Interpretive Data was last revised on 2017 Protein, ur ql Negative Negative [facility] Glucose, ur ql Negative Negative [facility] Ketones, ur Negative Negative [facility] Bilirubin, ur Negative Negative [facility] Blood, ur Negative Negative [facility] Urobilinogen, ur <2.0 <2.0 mg/dL [facility] Nitrite, ur Negative Negative [facility] Leukocyte esterase, ur Negative Negative [facility] UA reflex comment Reflex conditions for microscopic UA and culture not met. [facility] Urine 10/17/2024 9:22 AM CDT 10/17/2024 9:25 AM CDT Yaw Llanes DO LAB MICROBIOLOGY - GENERAL ORDERABLES Final Result [facility] [address] [facility] [place] [address] * eGFR (10/17/2024 9:18 AM CDT) Pathologist [facility] eGFR 70 >=60 mL/min/1. 73 m2 Comment: [...] Llanes DO LAB BLOOD ORDERABLES Final Result [facility] [address] [facility] Department of Laboratories [place], [place] [id number] * (ABNORMAL) Differential, auto (10/17/2024 9:18 AM CDT) Neutrophil abs 7.87(H) 1.50 - 6.50 K/cumm Imm gran abs 0.04 0.00 - 0.10 K/cumm [facility] Lymphocyte abs 2.16 0.80 - 3.30 K/cumm [facility] Monocyte abs 0.39 0.20 - 0.80 K/cumm [facility] Eosinophil abs 0.03 0.00 - 0.50 K/cumm [facility] Basophil abs 0.05 0.00 - 0.10 K/cumm [facility] Neutrophil pct 74.6 % [facility] Comment: Interpretive Data Percent cell count reference ranges are not reported, since discordance with absolute values may lead to misinterpretation of CBC data. Current Interpretive Data was last revised on 2017. Imm gran pct 0.4 % [facility] Comment: Interpretive Data Percent cell count reference ranges are not reported, since discordance with absolute values may lead to misinterpretation of CBC data. Current Interpretive Data was last revised on 2017. Lymphocyte pct 20.5 % [facility] Comment: Interpretive Data Percent cell count reference ranges are not reported, since discordance with absolute values may lead to misinterpretation of CBC data. Current Interpretive Data was last revised on 2017. Monocyte pct 3.7 % [facility] Comment: Interpretive Data Percent cell count reference ranges are not reported, since discordance with absolute values may lead to misinterpretation of CBC data. Current Interpretive Data was last revised on 2017. Eosinophil pct 0.3 % [facility] Comment: Interpretive Data Percent cell count reference ranges are not reported, since discordance with absolute values may lead to misinterpretation of CBC data. Current Interpretive Data was last revised on 2017. Basophil pct 0.5 % [facility] Comment: Interpretive Data Percent cell count reference ranges are not reported, since discordance with absolute values may lead to misinterpretation of CBC data. Current Interpretive Data was last revised on 2017. Blood 10/17/2024 9:18 AM CDT 10/17/2024 9:21 AM CDT Yaw Llanes DO LAB BLOOD ORDERABLES Final Result [facility] [address] [facility] [place] [address] * (ABNORMAL) CBC with auto differential (10/17/2024 9:18 AM CDT) WBC 10.54(H) 3.80 - 9.90 K/cumm Hgb 14.5 11.9 - 15.5 g/dL [facility] Hct 44.2 35.6 - 45.5 % [facility] Plt 281 150 - 400 K/cumm [facility] MPV 10.1 9.1 - 12.3 fL [facility] RBC 5.28(H) 3.90 - 5.20 M/cumm [facility] MCV 83.7 81.3 - 96.4 fL [facility] MCH 27.5 27.1 - 33.3 pg [facility] MCHC 32.8 32.3 - 35.7 g/dL [facility] RDW CV 14.6 11.1 - 14.9 % [facility] RDW SD 44.4 35.7 - 48.1 fL [facility] NRBC abs 0.00 0.00 - 0.01 K/cumm [facility] Blood 10/17/2024 9:18 AM CDT 10/17/2024 9:21 AM CDT Yaw Llanes DO LAB BLOOD ORDERABLES Final Result Performing Organization Address City/[facility]/ZIP Co de Phone Number [address] [address] * TSH (10/17/2024 9:18 AM CDT) [facility] Thyroid Stimulating Hormone 0.52 0.30 - 4.20 mcIUnit/mL Blood 10/17/2024 9:18 AM CDT 10/17/2024 9:21 AM CDT Gabi MORALES LAB BLOOD ORDERABL ES Final Result Performing Organization Address [facility] Co de Phone Number [address] [address] * (ABNORMAL) Comprehensive metabolic panel (10/17/2024 9:18 AM CDT) [facility] Sodium 139 135 - 145 mmol/L Potassium, pl 3.5 3.3 - 4.9 mmol/L [facility] Chloride 102 97 - 110 mmol/L [facility] CO2 22 22 - 32 mmol/L [facility] Anion gap 15 2 - 15 mmol/L [facility] BUN 30(H) 6 - 25 mg/dL [facility] Creatinine 0.94 0.60 - 1.10 mg/dL [facility] Glucose 169 70 - 199 mg/dL [facility] Comment: Interpretive Data Fasting glucose >/= [...] 2022. Calcium 10.2 8.5 - 10.3 mg/dL [facility] Bilirubin, total 0.3 0.1 - 1.2 mg/dL [facility] Protein, pl 7.6 6.5 - 8.5 g/dL [facility] Albumin 4.6 3.5 - 5.0 g/dL [facility] Alk phos 98 40 - 130 Units/L [facility] ALT 14 7 - 45 Units/L [facility] AST 16 10 - 45 Units/L [facility] Blood 10/17/2024 9:18 AM CDT 10/17/2024 9:21 AM CDT us Yawlatrice Llanes DO LAB BLOOD ORDERABLES Final Result [facility] [address] [facility] [place] [address] * CT Hip Right WO [...] Scooter Lord M.D. RB T: Report ID: [id number] Reading Location: [id number] Procedure Note Scooter Lord MD - 10/17/2024 [...] signed by Scooter HAYNES T: Report ID: [id number] Reading Location: [id number] Gabi MORALES [address]ph[address] CT PROCEDURES Final Result [...] or dislocation. No lytic or destructive process. Zteb-mz-hqiyjama degenerative change acromion and right SI joint. Soft tissues unremarkable. IMPRESSION: Ipqt-pn-yqxnvqux degenerative changes right hip. THIS IS AN ELECTRONICALLY VERIFIED FINAL REPORT 10/17/2024 7:04 AM - Electronically signed by Scooter HAYNES T: Report ID: [id number] Reading Location: [id number] Procedure Note Scooter Lord MD - 10/17/2024 [...] or dislocation. No lytic or destructive process. Qtth-hh-cvuoenrr degenerative change acromion and right SI joint. Soft tissues unremarkable. IMPRESSION: Nlpw-ze-mjmchpcr degenerative changes right hip. THIS IS AN ELECTRONICALLY VERIFIED FINAL REPORT 10/17/2024 7:04 AM - Electronically signed by Scooter HAYNES T: Report ID: [id number] Reading Location: [id number] Gabi MORALES IMG XR PROCEDURES Final Result from Last 3 Months Insurance [facility] Advance Directives For more information, please contact: [phone] * Full Code (Latest Code Status on File) Date Activated Date Inactivated Comments 07/01/2024 11:02 PM 07/02/2024 7:59 PM * Full Code Date Activated Date Inactivated Comments 07/01/2024 10:05 PM 07/01/2024 11:02 PM * Full Code Date Activated Date Inactivated Comments 07/19/2022 6:50 AM 07/21/2022 9:06 AM Care Teams Erp Specialist Relationship Specialty Start Date End Date Ana Mccoy MD [address] [facility] [address] [facility] [address] [place] [address] PCP - General Family Medicine 07/18/22
--- OUTSIDE RECORDS SUMMARY | 2024-12-10 08:17 | XMS_ITS | Clinical Summary ---
Author Organization [facility] Address [address] [place] [address] Care Team Providers Care Acquisition Analyst Name Role Phone Unavailable Primary Care Provider [...]
== END 2024-12-10 08:08 | disposition home or self-care (01) ==
PROVIDERS: PCP Family Medicine; Visit Provider Student in an Organized Health Care Education/Training Program
DX: D35.02 Benign neoplasm of left adrenal gland (principal)
CPT/HCPCS: 74170; Q9967